=== PATIENT | female | born 1985 | race Caucasian/White ===

== ENCOUNTER 2016-05-10 10:32 | Emergency (ER) | payer BC ==
--- NOTE | 2016-05-10 11:33 | ER Document Report ---
ED Medical Screen (RME) - General Stated Complaint: ANXIETY Mode of Arrival: Ambulatory Information source: Patient Notes: 30 y/o F with reports hx of anxiety reports recently moved to local area and has not established care yet and needs anti-anxiety medication. Denies SI/HI. I have greeted and performed a rapid initial assessment of this patient. A comprehensive ED assessment and evaluation of the patient, analysis of test results and completion of the medical decision making process will be conducted by additional ED providers. - Related Data Allergies/Adverse Reactions: No Known Allergies Allergy (Unverified 05/10/16 11:30) Physical Exam - Vital signs Vitals: Temp Pulse Resp BP Pulse Ox 98.1 F 89 20 119/95 H 100 05/10/16 11:28 05/10/16 11:28 05/10/16 11:28 05/10/16 11:28 05/10/16 11:28 - General General appearance: Appears well, Alert In distress: None - Respiratory Respiratory status: No respiratory distress - Psychological Associated symptoms: Normal affect, Normal mood Course - Vital Signs Vital signs: Temp Pulse Resp BP Pulse Ox 98.1 F 89 20 119/95 H 100 05/10/16 11:28 05/10/16 11:28 05/10/16 11:28 05/10/16 11:28 05/10/16 11:28
--- NOTE | 2016-05-10 15:33 | ER Document Report ---
HPI - HPI Patient complains to provider of: medication refill Onset: This morning Onset/Duration: Sudden Quality of pain: No pain Severity: None Pain Level: Denies Context: Patient presents to the emergency department with request for medication refill of her Xanax. Patient reports that she ran out of medication this morning. She reports she takes Xanax twice a day. She reports she is knew to the area and doesn't know where to go. She reports she does have [employer] and is waiting for also. She denies other symptoms such as fever nausea vomiting diarrhea Associated Symptoms: None Exacerbated by: Denies Relieved by: Denies Similar symptoms previously: Yes Recently seen / treated by doctor: No - DERM Skin Color: Normal Past Medical History - General Information source: Patient Last Menstrual Period: 05/02/16 - Social History Smoking Status: Never Smoker Chew tobacco use (# tins/day): No Frequency of alcohol use: None Drug Abuse: None Lives with: Family Family History: None Patient has suicidal ideation: No Patient has homicidal ideation: No Renal/ Medical History: Denies: Hx Peritoneal Dialysis Psychiatric Medical History: Reports: Hx Anxiety Surgical Hx: Negative Vertical Provider Document - CONSTITUTIONAL Agree With Documented VS: Yes Exam Limitations: No Limitations General Appearance: WD/WN, No Apparent Distress - INFECTION CONTROL TRAVEL OUTSIDE OF THE [place] IN LAST 30 DAYS: No - HEENT HEENT: Atraumatic, Normocephalic - NECK Neck: Supple - RESPIRATORY Respiratory: Breath Sounds Normal, No Respiratory Distress O2 Sat by Pulse Oximetry: 100 - CARDIOVASCULAR Cardiovascular: Regular Rate - MUSCULOSKELETAL/EXTREMETIES Musculoskeletal/Extremeties: JEROME DUMONT - NEURO Level of Consciousness: Awake, Alert, Appropriate - DERM Integumentary: Warm, Dry Course - Re-evaluation Re-evalutation: 05/10/16 15:34 I contacted Maddie from mental health on information for patient, place for patient to fu quickly with. Patient instructed on mental health resources in the area. She was instructed to follow up with mental health or primary care provider for further refills. - Vital Signs Vital signs: Temp Pulse Resp BP Pulse Ox 98.1 F 89 20 119/95 H 100 05/10/16 11:28 05/10/16 11:28 05/10/16 11:28 05/10/16 11:28 05/10/16 11:28 Discharge - Discharge Clinical Impression: Anxiety, Medication refill Condition: Stable Disposition: HOME, SELF-CARE Instructions: Anxiety ([facility]), Benzodiazepines ([facility]), Family Physicians / Practices Additional Instructions: *You have been treated for a history of anxiety, medication refill *Take medication as prescribed *Follow up with mental health or a primary care provider within one week *Return to ED for concerns, worsening condition, changes, needs Prescriptions: Alprazolam [Xanax 0.5 mg Tablet] 0.5 mg PO BID #14 tab Referrals: [facility] [Provider Group] - Follow up tomorrow (call for appointment)
[2016-05-10 15:47] VITALS: BP 135/90
== END 2016-05-10 16:00 | disposition home or self-care (01) ==
LOC: ER 10:32
DX: Z76.0 Encounter for issue of repeat prescription (principal); F41.9 Anxiety disorder, unspecified
CPT/HCPCS: 99281

== ENCOUNTER 2016-10-13 09:59 | Emergency (ER) | payer BC, MEDICAID, OTHER ==
--- NOTE | 2016-10-13 10:14 | ER Document Report ---
ED Medical Screen (RME) - General Chief Complaint: Headache Stated Complaint: LOWER BACK PAIN/HEADACHE Time Seen by Provider: 10/13/16 10:14 Notes: Patient presents complaining of posterior headache that has been constant for the last 5 days. She also complains of right flank pain that is been present for 4 days. Patient denies any problems with urination. She has had vomiting. She denies any knowledge of being . Patient has had no fevers or rashes. TRAVEL OUTSIDE OF THE [place] IN LAST 30 DAYS: No - Related Data Allergies/Adverse Reactions: No Known Allergies Allergy (Verified 10/13/16 10:05) Past Medical History Renal/ Medical History: Denies: Hx Peritoneal Dialysis Psychiatric Medical History: Reports: Hx Anxiety Physical Exam - Vital signs Vitals: Temp Pulse Resp BP Pulse Ox 98.4 F 88 16 158/106 H 99 10/13/16 10:04 10/13/16 10:04 10/13/16 10:04 10/13/16 10:04 10/13/16 10:04 Course - Vital Signs Vital signs: Temp Pulse Resp BP Pulse Ox 98.4 F 88 16 158/106 H 99 10/13/16 10:04 10/13/16 10:04 10/13/16 10:04 10/13/16 10:04 10/13/16 10:04
[2016-10-13 10:34] LABS: ABSOLUTE BASOPHILS # (AUTO) 0.1 10^3/uL (0.0-0.2); ABSOLUTE EOSINOPHILS # (AUTO) 0.3 10^3/uL (0.0-0.6); ABSOLUTE LYMPHOCYTES (AUTO) 3.9 10^3/uL (0.5-4.7); ABSOLUTE MONOCYTES (AUTO) 1.4 10^3/uL (0.1-1.4); BASOPHILS % (AUTO) 0.9 % (0-2); EOSINOPHILS % (AUTO) 2.5 % (0-6); HEMATOCRIT 41.7 % (36.0-47.0); HEMOGLOBIN 13.8 g/dL (12.0-15.5); HGB HCT DIFFERENCE -0.3; LYMPHOCYTES % (AUTO) 33.6 % (13-45); MEAN CORPUSCULAR HEMOGLOBIN 31.1 pg (27.0-33.4); MEAN CORPUSCULAR HGB CONC 33.1 g/dL (32.0-36.0); MEAN CORPUSCULAR VOLUME 94 fl (80-97); MONOCYTES % (AUTO) 11.7 % (3-13); RED BLOOD COUNT 4.43 10^6/uL (3.72-5.28); RED CELL DISTRIBUTION WIDTH 13.6 % (11.5-14.0); SEGMENTED NEUTROPHILS % (AUTO) 51.3 % (42-78); WHITE BLOOD COUNT 11.6 10^3/uL (4.0-10.5)
[2016-10-13 10:42] LABS: APPEARANCE,URINE CLOUDY; BILIRUBIN,URINE NEGATIVE (NEGATIVE); GLUCOSE, URINE NEGATIVE (NEGATIVE); KETONES,URINE NEGATIVE (NEGATIVE); LEUKOCYTE ESTERASE,URINE LARGE (NEGATIVE); NITRITE,URINE NEGATIVE (NEGATIVE); PROTEIN,URINE NEGATIVE (NEGATIVE); URINE SPECIFIC GRAVITY 1.009; UROBILINOGEN,URINE NEGATIVE mg/dL (<2.0)
[2016-10-13 10:53] LABS: ALANINE AMINOTRANSFERASE 25 U/L (9-52); ALBUMIN 4.4 g/dL (3.5-5.0); ALKALINE PHOSPHATASE 53 U/L (38-126); ANION GAP 11 (5-19); ASPARTATE AMINO TRANSFERASE 18 U/L (14-36); BILIRUBIN,DIRECT 0.2 mg/dL (0.0-0.4); BILIRUBIN,TOTAL 0.4 mg/dL (0.2-1.3); BLOOD UREA NITROGEN 14 mg/dL (7-20); CALCIUM 9.5 mg/dL (8.4-10.2); CARBON DIOXIDE 29 mmol/L (22-30); CHLORIDE 104 mmol/L (98-107); CREATININE RESULT 0.69 mg/dL (0.52-1.25); GLUCOSE 103 mg/dL (75-110); POTASSIUM 4.2 mmol/L (3.6-5.0); SODIUM 144.4 mmol/L (137-145); TOTAL PROTEIN 7.6 g/dL (6.3-8.2)
[2016-10-13] MEDS ORDERED: ONDANSETRON HCL INJ/PF 4 MG/2 ML SDV IV ONE (11:12)
[2016-10-13] MEDS ORDERED: KETOROLAC TROMETHAMINE INJ/PF 30 MG/1 ML SDV IV ONE (11:12)
[2016-10-13] MEDS ORDERED: NORMAL SALINE 1000 ML 1,000 ML IV PRN (11:12)
--- NOTE | 2016-10-13 11:15 | ER Document Report ---
ED General - General Chief Complaint: Headache Stated Complaint: LOWER BACK PAIN/HEADACHE Time Seen by Provider: 10/13/16 10:14 Mode of Arrival: Ambulatory Information source: Patient TRAVEL OUTSIDE OF THE [place] IN LAST 30 DAYS: No - HPI Patient complains to provider of: Headache, nausea and vomiting, syncopal episode, low back pain Onset: Other - 5 days Onset/Duration: Gradual, Waxing and waning Quality of pain: Achy Severity: Moderate Pain Level: 3 Associated symptoms: Body/muscle aches, Headache, Nausea, Vomiting Exacerbated by: Denies Relieved by: Denies Similar symptoms previously: No Recently seen / treated by doctor: No Notes: Patient is a 30-year-old female with a history of my headaches and anxiety, who presents to the emergency room today complaining of right-sided low back pain that started on Tuesday, on Tuesday she developed a headache which is in the posterior part of her head radiating into her neck, on Tuesday she had a syncopal episode, states her son was unable to arouse her and called 911, EMS sprayed something in her nose that woke her up and she has been feeling ill with a headache since, she reports dizziness, with nausea and vomiting since Tuesday, denies any abdominal pain, no fever or chills, no dysuria or urinary frequency, no sick contacts, she has had a history of syncope a few times in the past, she reports daily headaches but the headaches she has had over the past few days is different than usual, states that she only takes ibuprofen at home for the headache, but is also prescribed Xanax twice a day for anxiety - Related Data Allergies/Adverse Reactions: No Known Allergies Allergy (Verified 10/13/16 10:05) Past Medical History - General Information source: Patient - Social History Smoking Status: Never Smoker Family History: None Renal/ Medical History: Denies: Hx Peritoneal Dialysis Psychiatric Medical History: Reports: Hx Anxiety Review of Systems - Review of Systems Constitutional: No symptoms reported EENT: No symptoms reported Cardiovascular: No symptoms reported Respiratory: No symptoms reported Gastrointestinal: See HPI Genitourinary: No symptoms reported Female Genitourinary: No symptoms reported Musculoskeletal: See HPI Skin: No symptoms reported Hematologic/Lymphatic: No symptoms reported Neurological/Psychological: See HPI -: Yes All other systems reviewed and negative Physical Exam - Vital signs Vitals: Temp Pulse Resp BP Pulse Ox 98.4 F 88 16 158/106 H 99 10/13/16 10:04 10/13/16 10:04 10/13/16 10:04 10/13/16 10:04 10/13/16 10:04 Interpretation: Normal - General General appearance: Appears well, Alert - HEENT Head: Normocephalic, Atraumatic Eyes: Normal Pupils: PERRL - Respiratory Respiratory status: No respiratory distress Chest status: Nontender Breath sounds: Normal Chest palpation: Normal - Cardiovascular Rhythm: Regular Heart sounds: Normal auscultation Murmur: No - Abdominal Inspection: Normal Distension: No distension Bowel sounds: Normal Tenderness: Nontender Organomegaly: No organomegaly - Back Back: Normal, Nontender - Extremities General upper extremity: Normal inspection, Nontender, Normal color, Normal ROM , Normal temperature General lower extremity: Normal inspection, Nontender, Normal color, Normal ROM , Normal temperature, Normal weight bearing. No: Dariel's sign - Neurological Neuro grossly intact: Yes Cognition: Normal Orientation: AAOx4 Cantril Coma Scale Eye Opening: Spontaneous Cantril Coma Scale Verbal: Oriented Cantril Coma Scale Motor: Obeys Commands Ai Coma Scale Total: 15 Speech: Normal Motor strength normal: LUE, RUE, LLE, RLE Sensory: Normal - Psychological Associated symptoms: Normal affect, Normal mood - Skin Skin Temperature: Warm Skin Moisture: Dry Skin Color: Normal Course - Re-evaluation Re-evalutation: 10/13/16 12:53 Patient resting comfortably, reports feeling much better after IV fluids and medications, lab and imaging findings were discussed with patient at bedside which are consistent with a UTI, she will be started on antibiotics for this, advised to rest, drink plenty of fluids, follow-up with primary care provider or return if symptoms worsen, patient acknowledges understanding and agreement with this plan - Vital Signs Vital signs: Temp Pulse Resp BP Pulse Ox 98.4 F 88 16 158/106 H 99 10/13/16 10:04 10/13/16 10:04 10/13/16 10:04 10/13/16 10:04 10/13/16 10:04 - Laboratory Result Diagrams: 10/13/16 10:20 10/13/16 10:20 Laboratory results interpreted by me: 10/13/16 10/13/16 10:20 10:20 WBC 11.6 H Plt Count 480 H Urine Blood SMALL H Ur Leukocyte Esterase LARGE H - Diagnostic Test Radiology reviewed: Image reviewed, Reports reviewed - EKG Interpretation by Me EKG shows normal: Sinus rhythm Rate: Normal Rhythm: NSR Discharge - Discharge Clinical Impression: Urinary tract infection Qualifiers: Urinary tract infection type: site unspecified Hematuria presence: without hematuria Qualified Code(s): N39.0 - Urinary tract infection, site not specified Migraine headache Qualifiers: Migraine type: unspecified Status migrainosus presence: without status migrainosus Intractability: not intractable Qualified Code(s): G43.909 - Migraine, unspecified, not intractable, without status migrainosus Condition: Stable Disposition: HOME, SELF-CARE Instructions: Headache ([facility]), Urinary Tract Infection ([facility]), Cephalexin ([facility]) Additional Instructions: Follow up with your primary care provider in one to 2 days. Return to the emergency room immediately if symptoms worsen or any additional concerns. Prescriptions: Cephalexin Monohydrate [Keflex 500 mg Capsule] 500 mg PO BID #20 capsule
--- NOTE | 2016-10-13 11:39 | RADIOLOGY REPORT (SQ) ---
EXAM DESCRIPTION: CT HEAD WITHOUT COMPLETED DATE/TIME: 10/13/2016 11:28 am REASON FOR STUDY: injury COMPARISON: None. TECHNIQUE: Axial images acquired through the brain without intravenous contrast. Images reviewed wi th bone, brain and subdural windows. Images stored on PACS. All CT scanners at this facility use dose modulation, iterative reconstruction, and/or weight based d osing when appropriate to reduce radiation dose to as low as reasonably achievable (ALARA). [facility]: Dose Right [facility]: CareDose [facility]: Dose Right [facility]: Teradose 4D [facility]: [employer] RADIATION DOSE: Up-to-date CT equipment and radiation dose reduction techniques were employed. CTDIv ol: 64.6 mGy. DLP: 1163 mGy-cm. mGy. LIMITATIONS: None. FINDINGS: VENTRICLES: Normal size and contour. CEREBRUM: No masses. No hemorrhage. No midline shift. Normal reid/white matter differentiation. N o evidence for acute infarction. CEREBELLUM: No masses. No hemorrhage. No alteration of density. No evidence for acute infarction. EXTRAAXIAL SPACES: No fluid collections. No masses. ORBITS AND GLOBE: No intra- or extraconal masses. Normal contour of globe without masses. CALVARIUM: No fracture. PARANASAL SINUSES: No fluid or mucosal thickening. SOFT TISSUES: No mass or hematoma. OTHER: No other significant finding. IMPRESSION: NORMAL BRAIN CT WITHOUT CONTRAST. TECHNICAL DOCUMENTATION: JOB ID: [id number] Quality ID # [id number]: Final reports with documentation of one or more dose reduction techniques (e.g., Au tomated exposure control, adjustment of the mA and/or kV according to patient size, use of iterative reconstruction technique) 2010 [employer]- All Rights Reserved
[2016-10-13 12:48] LABS: URINE BARBITURATES SCREEN NEGATIVE; URINE METHADONE SCREEN NEGATIVE; URINE OPIATES LOW NEGATIVE; URINE PHENCYCLIDINE SCREEN NEGATIVE
[2016-10-13 13:22] VITALS: BP 119/87
--- NOTE | 2016-10-13 16:21 | EKG REPORT ---
SEVERITY:- NORMAL ECG - SINUS RHYTHM : Confirmed by: Peggy Helm MD 13-Oct-2016 16:20:54
== END 2016-10-13 13:23 | disposition home or self-care (01) ==
LOC: ER 09:59
DX: N39.0 Urinary tract infection, site not specified (principal); G43.909 Migraine, unspecified, not intractable, without status migrainosus; R11.2 Nausea with vomiting, unspecified; M54.5 Low back pain; R42 Dizziness and giddiness; F41.9 Anxiety disorder, unspecified; Z79.899 Other long term (current) drug therapy
CPT/HCPCS: 93005; 99284; 96361; 96374; 96375; 36415; 85025; 81025; 80053; 81001; 80307; 70450; 93010; J1885; J2405; J7030

== ENCOUNTER 2016-12-02 12:15 | Emergency (ER) | payer SELFPAY ==
[2016-12-02] MEDS ORDERED: ASPIRIN 325 MG TABLET PO ONE (12:47)
--- NOTE | 2016-12-02 12:57 | ER Document Report ---
ED Medical Screen (RME) - General Chief Complaint: Chest Pain Stated Complaint: CHEST AND FACE PAIN Time Seen by Provider: 12/02/16 12:46 Mode of Arrival: Ambulatory Information source: Patient TRAVEL OUTSIDE OF THE [place] IN LAST 30 DAYS: No - HPI Patient complains to provider of: CP Onset: This morning - pt with onset of SSCP earlier today along with right sided facial pain. - Related Data Allergies/Adverse Reactions: No Known Allergies Allergy (Verified 12/02/16 12:29) Home Medications: Current Home Medications No Home Medications 12/02/16 [History] Past Medical History - Social History Chew tobacco use (# tins/day): No Frequency of alcohol use: None Drug Abuse: None Renal/ Medical History: Denies: Hx Peritoneal Dialysis Psychiatric Medical History: Reports: Hx Anxiety Past Surgical History: Reports: Hx Abdominal Surgery - spleenectomy, Hx Section - x3, Hx Pancreatic Surgery - part of pancreas removed - Immunizations Hx Diphtheria, Pertussis, Tetanus Vaccination: No Physical Exam - Vital signs Vitals: Temp Pulse Resp BP Pulse Ox 98.4 F 98 12 130/86 H 99 12/02/16 12:23 12/02/16 12:23 12/02/16 12:23 12/02/16 12:23 12/02/16 12:23 Course - Vital Signs Vital signs: Temp Pulse Resp BP Pulse Ox 98.4 F 98 12 130/86 H 99 12/02/16 12:23 12/02/16 12:23 12/02/16 12:23 12/02/16 12:23 12/02/16 12:23
[2016-12-02 13:11] LABS: ABSOLUTE BASOPHILS # (AUTO) 0.1 10^3/uL (0.0-0.2); ABSOLUTE EOSINOPHILS # (AUTO) 0.2 10^3/uL (0.0-0.6); ABSOLUTE LYMPHOCYTES (AUTO) 4.6 10^3/uL (0.5-4.7); ABSOLUTE MONOCYTES (AUTO) 1.6 10^3/uL (0.1-1.4); ABSOLUTE NEUT (AUTO) 7.7 10^3/uL (1.7-8.2); EOSINOPHILS % (AUTO) 1.7 % (0-6); HEMATOCRIT 43.1 % (36.0-47.0); HEMOGLOBIN 14.6 g/dL (12.0-15.5); HGB HCT DIFFERENCE 0.7; LYMPHOCYTES % (AUTO) 32.4 % (13-45); MEAN CORPUSCULAR HEMOGLOBIN 30.9 pg (27.0-33.4); MEAN CORPUSCULAR HGB CONC 33.9 g/dL (32.0-36.0); MEAN CORPUSCULAR VOLUME 91 fl (80-97); MONOCYTES % (AUTO) 11.3 % (3-13); RED BLOOD COUNT 4.74 10^6/uL (3.72-5.28); RED CELL DISTRIBUTION WIDTH 13.5 % (11.5-14.0); SEGMENTED NEUTROPHILS % (AUTO) 53.6 % (42-78); WHITE BLOOD COUNT 14.3 10^3/uL (4.0-10.5)
[2016-12-02 13:30] LABS: ALANINE AMINOTRANSFERASE 37 U/L (9-52); ALBUMIN 4.8 g/dL (3.5-5.0); ALKALINE PHOSPHATASE 56 U/L (38-126); ANION GAP 17 (5-19); ASPARTATE AMINO TRANSFERASE 21 U/L (14-36); BILIRUBIN,DIRECT 0.3 mg/dL (0.0-0.4); BILIRUBIN,TOTAL 0.4 mg/dL (0.2-1.3); BLOOD UREA NITROGEN 10 mg/dL (7-20); CARBON DIOXIDE 22 mmol/L (22-30); CHLORIDE 103 mmol/L (98-107); CREATINE KINASE 59 U/L (30-135); CREATININE RESULT 0.63 mg/dL (0.52-1.25); GLUCOSE 94 mg/dL (75-110); POTASSIUM 4.2 mmol/L (3.6-5.0); SODIUM 142.1 mmol/L (137-145); TOTAL PROTEIN 8.2 g/dL (6.3-8.2)
[2016-12-02 13:42] LABS: CREATINE KINASE MB < 0.22 ng/mL (<4.55); TROPONIN I < 0.012 ng/mL
--- NOTE | 2016-12-02 14:01 | RADIOLOGY REPORT (SQ) ---
EXAM DESCRIPTION: CHEST PA/LAT COMPLETED DATE/TIME: 12/02/2016 1:22 pm REASON FOR STUDY: CP COMPARISON: None. EXAM PARAMETERS: NUMBER OF VIEWS: two views TECHNIQUE: Digital Frontal and Lateral radiographic views of the chest acquired. RADIATION DOSE: NA LIMITATIONS: none FINDINGS: LUNGS AND PLEURA: No opacities, masses or pneumothorax. No pleural effusion. MEDIASTINUM AND HILAR STRUCTURES: No masses or contour abnormalities. HEART AND VASCULAR STRUCTURES: Heart normal size. No evidence for failure. BONES: No acute findings. HARDWARE: None in the chest. OTHER: No other significant finding. IMPRESSION: NO SIGNIFICANT RADIOGRAPHIC FINDING IN THE CHEST. TECHNICAL DOCUMENTATION: JOB ID: [id number] [employer]- All Rights Reserved
--- NOTE | 2016-12-02 14:26 | ER Document Report ---
ED General - General Chief Complaint: Chest Pain Stated Complaint: CHEST AND FACE PAIN Time Seen by Provider: 12/02/16 12:46 Mode of Arrival: Ambulatory Notes: Patient is a 31 female presents emergency department complaining of multiple symptoms. Her primary complaint at this time is headache with facial numbness. She states that she woke up with this headache in the right side of her face feeling numb. She states that it hurts along the back side of her head and exacerbated with movment mildly. She states she has a history of migraines but that this is different with the associated numbness of her face. She has no facial paralysis. She is able to move her eyes and blink her eyes without any difficulties. No visual changes. Otherwise denies any weakness, numbness in her extremities. She does admit to mild chest pain as she was sitting watching TV, no associated shortness of breath, dyspnea, pleurisy, cough, nausea, vomiting. She states it is reproducible to touch of her sternum. TRAVEL OUTSIDE OF THE [place] IN LAST 30 DAYS: No - Related Data Allergies/Adverse Reactions: No Known Allergies Allergy (Verified 12/02/16 12:29) Home Medications: Current Home Medications No Home Medications 12/02/16 [History] Past Medical History - General Information source: Patient - Social History Smoking Status: Never Smoker Chew tobacco use (# tins/day): No Frequency of alcohol use: None Drug Abuse: None Family History: None Renal/ Medical History: Denies: Hx Peritoneal Dialysis Psychiatric Medical History: Reports: Hx Anxiety Past Surgical History: Reports: Hx Abdominal Surgery - spleenectomy, Hx Section - x3, Hx Pancreatic Surgery - part of pancreas removed - Immunizations Hx Diphtheria, Pertussis, Tetanus Vaccination: No Review of Systems - Review of Systems Constitutional: No symptoms reported Cardiovascular: See HPI Respiratory: See HPI Gastrointestinal: See HPI Musculoskeletal: See HPI Neurological/Psychological: See HPI -: Yes All other systems reviewed and negative Physical Exam - Vital signs Vitals: Temp Pulse Resp BP Pulse Ox 98.4 F 98 12 130/86 H 99 12/02/16 12:23 12/02/16 12:23 12/02/16 12:23 12/02/16 12:23 12/02/16 12:23 - General General appearance: Appears well, Alert In distress: None - HEENT Head: Normocephalic, Atraumatic. No: Abrasions, Justin's sign, Ecchymosis, Open wounds, Racoon's eyes, Tenderness, Other Eyes: Normal. No: Pale conjunctiva, Periorbital ecchymosis, Periorbital edema, Scleral icterus, Tears, Other Conjunctiva: Normal. No: Icteric, Injected, Purulent discharge, Other Cornea: Normal. No: Corneal abrasion, Corneal ulcer, Dendrite, Embedded foreign body, Flourescein stain uptake, Opacified, Superficial foreign body, Other Extraocular movements intact: Yes Eyelashes: Normal Pupils: PERRL Lids everted for exam: bilateral: Normal Fundascopic: Normal Nerve palsy: No Visual peguero normal: Yes Ears: Normal, Other - No evidence of vesicularLesions Tympanic membrane: Normal Sinus: Normal Nasal: Normal Mouth/Lips: Normal Mucous membranes: Normal Pharynx: Normal Neck: Normal - Respiratory Respiratory status: No respiratory distress Chest status: Nontender Breath sounds: Normal Chest palpation: Normal - Cardiovascular Rhythm: Regular Heart sounds: Normal auscultation, S1 appreciated, S2 appreciated Murmur: No Gallop: None auscultated Pulses: Normal: Radial, Dorsalis pedis Normal capillary refill: Yes - Abdominal Inspection: Normal Distension: No distension Bowel sounds: Normal Tenderness: Nontender Organomegaly: No organomegaly - Extremities General upper extremity: Normal inspection, Nontender, Normal color, Normal ROM , Normal strength, Normal temperature General lower extremity: Normal inspection, Nontender, Normal color, Normal ROM , Normal strength, Normal temperature, Normal weight bearing - Neurological Neuro grossly intact: Yes Cognition: Normal Orientation: AAOx4 [place] Coma Scale Eye Opening: Spontaneous [place] Coma Scale Verbal: Oriented Ai Coma Scale Motor: Obeys Commands Manderson Coma Scale Total: 15 Speech: Normal Cranial nerves: Normal. No: Facial palsy, Forehead sparing, Gaze palsy, Sensory deficit, Tongue deviation, Other Cerebellar coordination: Normal. No: Gait ataxia, Heel-crane, Finger-nose rhombey, Rapid alt. movements, Truncal ataxia, Other Motor strength normal: LUE, RUE, LLE, RLE Additional motor exam normals: Equal organ teacher. No: Weakness Sensory: Altered light touch - To her face. - Skin Skin Temperature: Warm Skin Moisture: Dry Skin Color: Normal Skin Turgor: Elastic Course - Re-evaluation Re-evalutation: 12/02/16 13:00 Patient is a 31-year-old female who is hemodynamically stable, no acute distress afebrile. No evidence of CT patient does not have any focal neurologic deficits, nuchal rigidity, vital signs are within normal limits no papilledema. Patient is otherwise no acute distress and hemodynamically stable. Low index for suspicion of acute subarachnoid hemorrhage, meningitis or mass. Findings significant for hemorrhage, ischemia. Low suspicion for acute life-threatening etiology with intact neuro exam therefore no additional imaging or laboratory testing is indicated. Patient has improved after medication. States her chest pain has resolved mildly tender to deep palpation. States that her head mildly hurts at the back of her neck that is tender to touch but otherwise states that her generalized headache is resolved. Will discharge patient home with strict follow-up with PCP within the next week. - Vital Signs Vital signs: Temp Pulse Resp BP Pulse Ox 98.4 F 93 20 116/88 H 98 12/02/16 12:23 12/02/16 17:06 12/02/16 17:06 12/02/16 17:06 12/02/16 17:06 - Laboratory Result Diagrams: 12/02/16 13:00 12/02/16 13:00 Laboratory results interpreted by me: 12/02/16 12/02/16 13:00 14:43 WBC 14.3 H Plt Count 478 H Absolute Monocytes 1.6 H Urine Ketones TRACE H Urine Blood SMALL H Urine Nitrite POSITIVE H Ur Leukocyte Esterase TRACE H - Diagnostic Test Radiology reviewed: Image reviewed, Reports reviewed - EKG Interpretation by Ut EKG shows normal: Sinus rhythm Rate: Normal Rhythm: NSR When compared to previous EKG there are: Previous EKG unavailable Discharge - Discharge Clinical Impression: Headache Qualifiers: Headache type: tension-type Headache chronicity pattern: acute headache Intractability: not intractable Qualified Code(s): G44.209 - Tension-type headache, unspecified, not intractable Condition: Good Disposition: HOME, SELF-CARE Additional Instructions: HEADACHE: The physician does not feel that the headache you are experiencing has a serious underlying cause. Most headaches are due to emotional stress, with resultant muscle tension (tension headache). Occasionally, headaches are secondary to changes in the blood vessels of the scalp (vascular headache and migraine headache). Sometimes, a headache is the first symptom of another developing illness, such as a viral infection. You have no evidence of stroke, bleeding, meningitis, or other serious cause of your headache. The treatment of headaches varies with the severity and cause of the pain. Not all headaches need pain shots. In fact, there is evidence that using narcotics for headaches may make them worse in the long run. The physician will determine the therapy that's in your best interest. If you develop a fever, if the headache is different from any you've previously experienced, or if the headache progressively worsens, then call your physician at once or go to the emergency room. REGLAN (METOCLOPRAMIDE): Reglan has been prescribed. This medicine affects the stomach and intestines. It can be used to treat nausea and vomiting, to prevent reflux of stomach acid up into the esophagus, or to increase the contractions of the stomach and intestines. It is often prescribed for esophagitis, and for paralysis of the stomach in diabetics. Reglan can cause either mild restlessness or drowsiness. You should contact the doctor at once if you become extremely restless, anxious, or cannot sleep, or if you develop uncontrollable motions of the lips, tongue, or jaw. Do not take alcohol with this medicine. Do not drive or operate machinery until you have been taking this medicine long enough to know how it affects you. Call the doctor if you develop abdominal pains, lightheadedness, black stool, or blood in the stool or vomitus. USE OF DIPHENHYDRAMINE: Diphenhydramine (Benadryl) is an antihistamine and has been recommended to help treat your headache and to prevent side effects of other medications used to treat headaches. The medication can be repeated four times daily. Age Elixir (12.5 mg/tsp) 25 mg pill adult 1-2 tabs Antihistamines may cause drowsiness, especially with the first dose. Do not operate machinery or drive while under the effects of the medication. Do not combine the medication with alcohol, or with any other medication without talking to your doctor. ANTINAUSEA MEDICATION: You have been given a medication to suppress nausea and vomiting. This type of medication can be given as a shot, pill, or suppository. It will usually last for many hours. Pills and shots usually last six to eight hours, suppositories last about 12 hours. For the typical illness, only one or two doses of the medication may be necessary. Mild lightheadedness may occur. This type of medicine can cause drowsiness. Do not drive or operate dangerous machinery while under its influence. Do not mix with alcohol. See your doctor at once if you have muscle spasms or tightness, or uncontrollable motions (particularly of the neck, mouth, or jaw). Persistent vomiting or severe lightheadedness should also be evaluated by the physician. PAIN MEDICATION INJECTION: You have received an injection of a pain medication. You should experience significant pain relief within 45 minutes. This drug is a narcotic - - it will impair your judgement, slow your reaction time and make you sleepy ( as well as relieve your pain). Narcotics also can cause nausea. You should not drive, work with machinery, or perform any task requiring mental alertness until all effects of the medication are gone -- six to eight hours. Do not take any alcohol, or sedatives, and do not take any other medication without checking with your physician. FOLLOW-UP CARE: If you have been referred to a physician for follow-up care, call the physician s office for an appointment as you were instructed or within the next two days. If you experience worsening or a significant change in your symptoms, notify the physician immediately or return to the Emergency Department at any time for re-evaluation. Referrals: [facility] [NO LOCAL MD] - Follow up as needed
--- NOTE | 2016-12-02 14:50 | RADIOLOGY REPORT (SQ) ---
EXAM DESCRIPTION: CT HEAD WITHOUT COMPLETED DATE/TIME: 12/02/2016 2:36 pm REASON FOR STUDY: right occipital headache with facial numbness COMPARISON: None. TECHNIQUE: Axial images acquired through the brain without intravenous contrast. Images reviewed wi th bone, brain and subdural windows. Images stored on PACS. All CT scanners at this facility use dose modulation, iterative reconstruction, and/or weight based d osing when appropriate to reduce radiation dose to as low as reasonably achievable (ALARA). [facility]: Dose Right [facility]: CareDose [facility]: Dose Right [facility]: Teradose 4D [facility]: Smart Mindshapes RADIATION DOSE: Up-to-date CT equipment and radiation dose reduction techniques were employed. CTDIv ol: 64.6 mGy. DLP: 1163 mGy-cm. mGy. LIMITATIONS: None. FINDINGS: VENTRICLES: Normal size and contour. CEREBRUM: No masses. No hemorrhage. No midline shift. No evidence for acute infarction. Normal gra y/white matter differentiation. No areas of low density in the white matter. CEREBELLUM: No masses. No hemorrhage. No alteration of density. No evidence for acute infarction. EXTRAAXIAL SPACES: No fluid collections. No masses. ORBITS AND GLOBE: No intra- or extraconal masses. Normal contour of globe without masses. CALVARIUM: No fracture. PARANASAL SINUSES: No fluid or mucosal thickening. SOFT TISSUES: No mass or hematoma. OTHER: No other significant finding. IMPRESSION: NORMAL BRAIN CT WITHOUT CONTRAST. COMMENT: Quality ID # [id number]: Final reports with documentation of one or more dose reduction techniques (e.g., Automated exposure control, adjustment of the mA and/or kV according to patient size, use of iterative reconstruction technique) TECHNICAL DOCUMENTATION: JOB ID: [id number]- All Rights Reserved
[2016-12-02 14:57] LABS: AMORPHOUS SEDIMENT,URINE TRACE /HPF; APPEARANCE,URINE SLIGHTLY-CLOUDY; BILIRUBIN,URINE NEGATIVE (NEGATIVE); GLUCOSE, URINE NEGATIVE (NEGATIVE); KETONES,URINE TRACE mg/dL (NEGATIVE); LEUKOCYTE ESTERASE,URINE TRACE (NEGATIVE); NITRITE,URINE POSITIVE (NEGATIVE); PROTEIN,URINE NEGATIVE (NEGATIVE); URINE SPECIFIC GRAVITY 1.012; UROBILINOGEN,URINE NEGATIVE mg/dL (<2.0)
[2016-12-02] MEDS ORDERED: DIPHENHYDRAMINE HCL 50 MG/ML VIAL IV ONE (15:16)
[2016-12-02] MEDS ORDERED: METOCLOPRAMIDE HCL INJ/PF 10 MG/2 ML SDV IV ONE (15:16)
[2016-12-02] MEDS ORDERED: MORPHINE SULFATE 10 MG/ML INJ IV ONE (15:16)
[2016-12-02 17:07] VITALS: BP 116/88
--- NOTE | 2016-12-02 20:14 | EKG REPORT ---
SEVERITY:- NORMAL ECG - SINUS RHYTHM : Confirmed by: Flory Dewey 02-Dec-2016 20:13:48
== END 2016-12-02 17:07 | disposition home or self-care (01) ==
LOC: ER 12:15
DX: G44.209 Tension-type headache, unspecified, not intractable (principal); R20.0 Anesthesia of skin; R07.9 Chest pain, unspecified
CPT/HCPCS: 93005; 99285; 96374; 96375; 36415; 82553; 82550; 84703; 85025; 80053; 81001; 84484; 71020; 70450; 93010; J1200; J2765; J2270

== ENCOUNTER 2018-12-03 12:11 | Emergency (ER) | payer SELFPAY ==
[2018-12-03] MEDS ORDERED: KETOROLAC TROMETHAMINE INJ/PF 30 MG/1 ML SDV IV ONE (12:35)
[2018-12-03] MEDS ORDERED: NORMAL SALINE 1000 ML 1,000 ML IV ONE (12:35)
[2018-12-03] MEDS ORDERED: DEXAMETHASONE SOD PHOS INJ 10 MG/1 ML VIAL IV ONE (12:38)
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
[2018-12-03 13:26] LABS: APPEARANCE,URINE HAZY; BILIRUBIN,URINE NEGATIVE (NEGATIVE); COLOR,URINE YELLOW; GLUCOSE, URINE NEGATIVE (NEGATIVE); KETONES,URINE NEGATIVE (NEGATIVE); LEUKOCYTE ESTERASE,URINE LARGE (NEGATIVE); NITRITE,URINE NEGATIVE (NEGATIVE); PROTEIN,URINE 100 mg/dL (NEGATIVE); UROBILINOGEN,URINE NEGATIVE mg/dL (<2.0)
[2018-12-03 13:28] LABS: ABSOLUTE BASOPHILS # (AUTO) 0.2 10^3/uL (0.0-0.2); ABSOLUTE EOSINOPHILS # (AUTO) 0.3 10^3/uL (0.0-0.6); ABSOLUTE LYMPHOCYTES (AUTO) 3.8 10^3/uL (0.5-4.7); ABSOLUTE NEUT (AUTO) 6.1 10^3/uL (1.7-8.2); BASOPHILS % (AUTO) 1.3 % (0-2); HEMATOCRIT 39.8 % (36.0-47.0); HEMOGLOBIN 13.3 g/dL (12.0-15.5); LYMPHOCYTES % (AUTO) 33.3 % (13-45); MEAN CORPUSCULAR HEMOGLOBIN 30.4 pg (27.0-33.4); MEAN CORPUSCULAR HGB CONC 33.3 g/dL (32.0-36.0); MEAN CORPUSCULAR VOLUME 91 fl (80-97); MONOCYTES % (AUTO) 8.8 % (3-13); PLATELET COUNT 558 10^3/uL (150-450); RED BLOOD COUNT 4.36 10^6/uL (3.72-5.28); RED CELL DISTRIBUTION WIDTH 13.8 % (11.5-14.0); SEGMENTED NEUTROPHILS % (AUTO) 53.6 % (42-78); TOTAL CELLS COUNTED % (AUTO) 100 %; WHITE BLOOD COUNT 11.4 10^3/uL (4.0-10.5)
[2018-12-03 13:31] LABS: URINE SPECIFIC GRAVITY 1.014
[2018-12-03 13:36] LABS: ALBUMIN 4.4 g/dL (3.5-5.0); ALKALINE PHOSPHATASE 60 U/L (38-126); ANION GAP 11 (5-19); ASPARTATE AMINO TRANSFERASE 34 U/L (14-36); BILIRUBIN,DIRECT 0.1 mg/dL (0.0-0.4); BILIRUBIN,TOTAL 0.3 mg/dL (0.2-1.3); BLOOD UREA NITROGEN 11 mg/dL (7-20); CALCIUM 9.6 mg/dL (8.4-10.2); CARBON DIOXIDE 29 mmol/L (22-30); CHLORIDE 100 mmol/L (98-107); GLUCOSE 116 mg/dL (75-110); POTASSIUM 4.5 mmol/L (3.6-5.0); TOTAL PROTEIN 7.6 g/dL (6.3-8.2)
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
--- NOTE | 2018-12-03 14:07 | RADIOLOGY REPORT (SQ) ---
EXAM DESCRIPTION: CT ABD/PELVIS NO ORAL OR IV COMPLETED DATE/TIME: 12/03/2018 1:53 pm REASON FOR STUDY: Rt flank pain, hematuria COMPARISON: None. TECHNIQUE: CT scan of the abdomen and pelvis performed without intravenous or oral contrast. Images reviewed with lung, soft tissue, and bone windows. Reconstructed coronal and sagittal MPR images revi ewed. All images stored on PACS. All CT scanners at this facility use dose modulation, iterative reconstruction, and/or weight based d osing when appropriate to reduce radiation dose to as low as reasonably achievable (ALARA). [facility]: Dose Right [facility]: CareDose [facility]: Dose Right [facility]: Teradose 4D [facility]: Smart [employer] RADIATION DOSE: CT Rad equipment meets quality standard of care and radiation dose reduction techniq ues were employed. CTDIvol: 12.6 mGy. DLP: 644 mGy-cm.mGy. LIMITATIONS: None. FINDINGS: LOWER CHEST: No significant findings. No nodules or infiltrates. NON-CONTRASTED LIVER, SPLEEN, ADRENALS: Liver unremarkable. Status post splenectomy. No adrenal mas s. PANCREAS: No masses. No peripancreatic inflammatory changes. GALLBLADDER: No identified stones by CT criteria. No inflammatory changes to suggest cholecystitis. RIGHT KIDNEY AND URETER: Medullary calcinosis. No evidence of hydronephrosis or ureteral stones. LEFT KIDNEY AND URETER: Similar findings to the right kidney. AORTA AND RETROPERITONEUM: No aneurysm. No retroperitoneal masses or adenopathy. BOWEL AND PERITONEAL CAVITY: No obvious masses or inflammatory changes. No free fluid. APPENDIX: Normal. PELVIS, BLADDER, AND ABDOMINAL WALL:No abnormal masses. No free fluid. Bladder normal. BONES: No significant findings. OTHER: No other significant finding. IMPRESSION: 1. No evidence of urinary obstruction. No acute or suspicious abdominopelvic abnormality. 2. Bilateral medullary nephrocalcinosis. TECHNICAL DOCUMENTATION: JOB ID: [id number] Quality ID # [id number]: Final reports with documentation of one or more dose reduction techniques (e.g., Au tomated exposure control, adjustment of the mA and/or kV according to patient size, use of iterative reconstruction technique) 2010 [employer]- All Rights Reserved Reading location - IP/workstation name: [email or web address]
[2018-12-03 14:40] VITALS: BP 119/84
== END 2018-12-03 14:42 | disposition home or self-care (01) ==
LOC: ER 12:11
DX: E83.59 Other disorders of calcium metabolism (principal); N29 Other disorders of kidney and ureter in diseases classified elsewhere; N39.0 Urinary tract infection, site not specified; M54.5 Low back pain; R10.31 Right lower quadrant pain; J02.9 Acute pharyngitis, unspecified
CPT/HCPCS: 36415; 87070; 87086; 87880; 85025; 81025; 87088; 80053; 81001; 74176; J1885; J7030; J1100; 87186; 96361; 96374; 96375; 99284

== ENCOUNTER 2019-01-18 00:21 | Emergency (ER) | payer OTHER ==
[2019-01-18 01:18] LABS: APPEARANCE,URINE SLIGHTLY-CLOUDY; BILIRUBIN,URINE NEGATIVE (NEGATIVE); COLOR,URINE YELLOW; GLUCOSE, URINE NEGATIVE (NEGATIVE); KETONES,URINE 80 mg/dL (NEGATIVE); LEUKOCYTE ESTERASE,URINE SMALL (NEGATIVE); NITRITE,URINE NEGATIVE (NEGATIVE); PROTEIN,URINE 100 mg/dL (NEGATIVE); URINE SPECIFIC GRAVITY 1.029; UROBILINOGEN,URINE NEGATIVE mg/dL (<2.0)
[2019-01-18 01:19] LABS: HEMATOCRIT 43.5 % (36.0-47.0); HEMOGLOBIN 14.4 g/dL (12.0-15.5); MEAN CORPUSCULAR HEMOGLOBIN 29.7 pg (27.0-33.4); MEAN CORPUSCULAR VOLUME 90 fl (80-97); PLATELET COUNT 485 10^3/uL (150-450); RED BLOOD COUNT 4.84 10^6/uL (3.72-5.28); RED CELL DISTRIBUTION WIDTH 13.6 % (11.5-14.0); WHITE BLOOD COUNT 29.6 10^3/uL (4.0-10.5)
[2019-01-18 01:27] LABS: ALBUMIN 4.7 g/dL (3.5-5.0); ALKALINE PHOSPHATASE 117 U/L (38-126); ANION GAP 15 (5-19); ASPARTATE AMINO TRANSFERASE 95 U/L (14-36); BILIRUBIN,DIRECT 0.2 mg/dL (0.0-0.4); BILIRUBIN,TOTAL 0.4 mg/dL (0.2-1.3); BLOOD UREA NITROGEN 17 mg/dL (7-20); CALCIUM 10.3 mg/dL (8.4-10.2); CARBON DIOXIDE 23 mmol/L (22-30); CHLORIDE 104 mmol/L (98-107); GLUCOSE 152 mg/dL (75-110); POTASSIUM 4.3 mmol/L (3.6-5.0); TOTAL PROTEIN 8.5 g/dL (6.3-8.2)
[2019-01-18 01:34] LABS: ABSOLUTE LYMPHOCYTES# (MANUAL) 5.6 10^3/uL (0.5-4.7); ABSOLUTE MONOCYTES # (MANUAL) 1.8 10^3/uL (0.1-1.4); BAND NEUTROPHILS % (MANUAL) 1 % (3-5); BASOPHILS % (MANUAL) 0 % (0-2); EOSINOPHILS % (MANUAL) 0 % (0-6); LYMPHOCYTES % (MANUAL) 19 % (13-45); MONOCYTES % (MANUAL) 6 % (3-13); PLATELET COMMENT INCREASED; RBC MORPHOLOGY COMMENT NORMO-CYTIC/CHROMIC; SEGMENTED NEUTROPHILS % (MAN) 74 % (42-78); TOTAL CELLS COUNTED 100
--- NOTE | 2019-01-18 02:54 | RADIOLOGY REPORT (SQ) ---
EXAM DESCRIPTION: CT ABDOMEN PELVIS WITHOUT IV CONTRAST COMPLETED DATE/TME: 01/18/2019 00:00 CLINICAL HISTORY: 33 years, Female, left flank pain, blood in urine. HCG NEG. COMPARISON: 12/03/2018 CT TECHNIQUE: 370 Images stored on PACS. All CT scanners at this facility use dose modulation, iterative reconstruction, and/or weight based dosing when appropriate to reduce radiation dose to as low as reasonably achievable (ALARA). [facility]: Dose Right [facility]: CareDose [facility]: Dose Right [facility]: Teradose 4D [facility]: Smart [employer] LIMITATIONS: None. FINDINGS: Limited evaluation of the lung bases is unremarkable. Osseous structures are grossly intact. Fatty infiltrative change to the liver. Post surgical changes in the left upper quadrant. Spleen is surgically absent. The gallbladder is present. Hyperdense appearance to the renal remains could reflect medullary nephrocalcinosis. Moderate left hydroureteronephrosis with minor adjacent inflammatory change secondary to an approximately 4 to 5 mm left UVJ calculus. No gross evidence for bowel obstruction. Trace of free fluid in the pelvis which may be physiologic. Normal appendix. No free air. IMPRESSION: Moderate left hydroureteronephrosis secondary to a 4 to 5 mm left UVJ calculus. Findings suggestive of medullary nephrocalcinosis. TECHNICAL DOCUMENTATION: Quality ID # 436: Final reports with documentation of one or more dose reduction techniques (e.g., Automated exposure control, adjustment of the mA and/or kV according to patient size, use of iterative reconstruction technique) copyright 2011 [employer]- All Rights Reserved
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
[2019-01-18] MEDS ORDERED: CEFTRIAXONE 1 GM/D5W RTU 1 GM/50 ML RTUPB IV ONE (03:42)
[2019-01-18] MEDS ORDERED: ONDANSETRON HCL INJ/PF 4 MG/2 ML SDV IV ONE (03:42)
[2019-01-18] MEDS ORDERED: KETOROLAC TROMETHAMINE INJ/PF 30 MG/1 ML SDV IV ONE (03:42)
[2019-01-18] MEDS ORDERED: NORMAL SALINE 1000 ML 1,000 ML IV ONE (03:42)
[2019-01-18 06:57] VITALS: BP 130/85
== END 2019-01-18 06:58 | disposition home or self-care (01) ==
LOC: ER 00:21
DX: N20.1 Calculus of ureter (principal); R10.32 Left lower quadrant pain; M54.6 Pain in thoracic spine; R11.0 Nausea; F17.200 Nicotine dependence, unspecified, uncomplicated
CPT/HCPCS: 99284; 96375; 96365; 36415; 83690; 85025; 81025; 80053; 81001; 74176; J1885; J2405; J7030; J0696

== ENCOUNTER 2019-02-04 10:11 | Emergency (ER) | payer OTHER ==
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
[2019-02-04 10:47] LABS: AMORPHOUS SEDIMENT,URINE TRACE /HPF; APPEARANCE,URINE CLOUDY; BILIRUBIN,URINE NEGATIVE (NEGATIVE); COLOR,URINE YELLOW; GLUCOSE, URINE NEGATIVE (NEGATIVE); KETONES,URINE NEGATIVE (NEGATIVE); LEUKOCYTE ESTERASE,URINE NEGATIVE (NEGATIVE); NITRITE,URINE NEGATIVE (NEGATIVE); PROTEIN,URINE 30 mg/dL (NEGATIVE); URINE SPECIFIC GRAVITY 1.021; UROBILINOGEN,URINE NEGATIVE mg/dL (<2.0)
--- NOTE | 2019-02-04 11:31 | RADIOLOGY REPORT (SQ) ---
EXAM DESCRIPTION: CT SOFT TISSUE NECK WITH COMPLETED DATE/TIME: 02/04/2019 10:57 am REASON FOR STUDY: diff swallowing COMPARISON: None. TECHNIQUE: Post IV contrasted scanning from skull base through lung apices with review of bone, soft tissue and lung windows. Reconstructed coronal and sagittal MPR images reviewed. All images stored on PACS. All CT scanners at this facility use dose modulation, iterative reconstruction, and/or weight based d osing when appropriate to reduce radiation dose to as low as reasonably achievable (ALARA). [facility]: Dose Right [facility]: CareDose [facility]: Dose Right [facility]: Teradose 4D [facility]: [employer] CONTRAST TYPE AND DOSE: contrast/concentration: Isovue 350.00 mg/ml; Total Contrast Delivered: 75.0 ml; Total Saline Delivered: 55.0 ml RENAL FUNCTION: None required. The patient is less than 50 years old. RADIATION DOSE: CT Rad equipment meets quality standard of care and radiation dose reduction techniq ues were employed. CTDIvol: 14.4 mGy. DLP: 438 mGy-cm. . LIMITATIONS: None. FINDINGS: SKULL BASE: Inferior brain parenchyma normal MAJOR SALIVARY GLANDS: No solid or cystic masses. No inflammatory changes. LYMPHADENOPATHY: Mild diffuse cervical adenopathy. Right jugulodigastric lymph node 2.5 by 1.5 cm. Left jugulodigastric lymph node 2.5 x 2 cm in size. Smaller lymph nodes are seen along the right and left carotid spaces. MUCOSAL MASSES OR ASYMMETRY: Diffusely enlarged bilateral pharyngeal tonsils without intra tonsillar or peritonsillar abscess. These cause moderate narrowing of the cisco pharyngeal airway. Both tonsils measure about 3 x 2 x 4 cm in size. There is also hypertrophy of the lymphoid tissue at the tongue base protruding into the vallecula, be st shown on sagittal reconstruction images 33-39. LARYNX/CORDS: No abnormal findings. VASCULAR STRUCTURES: The major vessels are patent. LUNG APICES: Patchy airspace disease is seen at the superior segment right lower lobe and right lung apex. Concurrent pneumonia may be present. Two-view chest recommended for follow-up. BONES: Intact. THYROID: Normal size. No masses. PARANASAL SINUSES: Clear. OTHER: No other significant finding. IMPRESSION: Diffuse enlargement of the pharyngeal tonsils and lingual lymphoid tissue worrisome for infection/ inflammation. Enlarged cervical lymph nodes are present, likely reactive. Correlate clin ically to exclude lymphoproliferative process Patchy airspace disease in the right upper lobe/superior segment right lower lobe. Two-view chest x- ray recommended for follow-up. TECHNICAL DOCUMENTATION: JOB ID: [id number] Quality ID # [id number]: Final reports with documentation of one or more dose reduction techniques (e.g., Au tomated exposure control, adjustment of the mA and/or kV according to patient size, use of iterative reconstruction technique) 2010 [employer]- All Rights Reserved Reading location - IP/workstation name: [email or web address]
[2019-02-04] MEDS ORDERED: DEXAMETHASONE SOD PHOS INJ 10 MG/1 ML VIAL IV ONE (11:34)
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
--- NOTE | 2019-02-04 12:10 | RADIOLOGY REPORT (SQ) ---
EXAM DESCRIPTION: CHEST 2 VIEWS COMPLETED DATE/TIME: 02/04/2019 11:53 am REASON FOR STUDY: difficulty swallowing COMPARISON: 02/04/2019 CT soft tissue neck EXAM PARAMETERS: NUMBER OF VIEWS: two views TECHNIQUE: Digital Frontal and Lateral radiographic views of the chest acquired. RADIATION DOSE: NA LIMITATIONS: none FINDINGS: LUNGS AND PLEURA: Question early or developing right upper lobe infiltrate. Airspace dise ase was seen in the right lung apex on the CT soft tissue neck earlier today. No dense consolidation worrisome for lobar pneumonia. No pleural effusion or pneumothorax. MEDIASTINUM AND HILAR STRUCTURES: No masses or contour abnormalities. HEART AND VASCULAR STRUCTURES: Heart normal size. No evidence for failure. BONES: No acute findings. HARDWARE: Surgical clips in the GE junction. OTHER: No other significant finding. IMPRESSION: Early or developing right upper lobe infiltrate TECHNICAL DOCUMENTATION: JOB ID: [id number] [employer]- All Rights Reserved Reading location - IP/workstation name: [email or web address]
[2019-02-04 12:22] LABS: ABSOLUTE BASOPHILS # (AUTO) 0.1 10^3/uL (0.0-0.2); ABSOLUTE EOSINOPHILS # (AUTO) 0.4 10^3/uL (0.0-0.6); ABSOLUTE LYMPHOCYTES (AUTO) 9.6 10^3/uL (0.5-4.7); ABSOLUTE MONOCYTES (AUTO) 1.7 10^3/uL (0.1-1.4); ABSOLUTE NEUT (AUTO) 6.4 10^3/uL (1.7-8.2); BASOPHILS % (AUTO) 0.5 % (0-2); EOSINOPHILS % (AUTO) 2.4 % (0-6); HEMATOCRIT 41.1 % (36.0-47.0); HEMOGLOBIN 13.4 g/dL (12.0-15.5); LYMPHOCYTES % (AUTO) 52.6 % (13-45); MEAN CORPUSCULAR HEMOGLOBIN 29.6 pg (27.0-33.4); MEAN CORPUSCULAR HGB CONC 32.5 g/dL (32.0-36.0); MEAN CORPUSCULAR VOLUME 91 fl (80-97); MONOCYTES % (AUTO) 9.2 % (3-13); PLATELET COUNT 607 10^3/uL (150-450); RED BLOOD COUNT 4.51 10^6/uL (3.72-5.28); RED CELL DISTRIBUTION WIDTH 13.5 % (11.5-14.0); SEGMENTED NEUTROPHILS % (AUTO) 35.3 % (42-78); TOTAL CELLS COUNTED % (AUTO) 100 %; WHITE BLOOD COUNT 18.3 10^3/uL (4.0-10.5)
[2019-02-04 12:27] LABS: ALBUMIN 4.1 g/dL (3.5-5.0); ALKALINE PHOSPHATASE 100 U/L (38-126); ANION GAP 10 (5-19); ASPARTATE AMINO TRANSFERASE 27 U/L (14-36); BILIRUBIN,DIRECT 0.2 mg/dL (0.0-0.4); BILIRUBIN,TOTAL 0.4 mg/dL (0.2-1.3); BLOOD UREA NITROGEN 15 mg/dL (7-20); CALCIUM 9.5 mg/dL (8.4-10.2); CARBON DIOXIDE 30 mmol/L (22-30); CHLORIDE 102 mmol/L (98-107); GLUCOSE 116 mg/dL (75-110); POTASSIUM 4.7 mmol/L (3.6-5.0); TOTAL PROTEIN 7.9 g/dL (6.3-8.2)
[2019-02-04] MEDS ORDERED: NORMAL SALINE 1000 ML 1,000 ML IV ONE (12:42)
[2019-02-04] MEDS ORDERED: KETOROLAC TROMETHAMINE INJ/PF 30 MG/1 ML SDV IV ONE (12:48)
[2019-02-04] MEDS ORDERED: AZITHROMYCIN INJ 500 MG VIAL IV ONE (14:19)
[2019-02-04] MEDS ORDERED: METHYLPREDNISOLONE INJ 125 MG/2 ML SDV IV ONE (14:20)
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
[2019-02-04] MEDS ORDERED: ONDANSETRON HCL INJ/PF 4 MG/2 ML SDV IV ONE (15:18)
[2019-02-04] MEDS ORDERED: LORAZEPAM INJ 2 MG/1 ML VIAL IV ONE (15:19)
[2019-02-04] MEDS: NORMAL SALINE 1000 ML 1,000 ML IV PRN ×2 (15:29→16:27)
[2019-02-04 18:18] VITALS: BP 120/93
== END 2019-02-04 18:21 | disposition home or self-care (01) ==
LOC: ER 10:11
DX: J18.8 Other pneumonia, unspecified organism (principal); J02.9 Acute pharyngitis, unspecified; R06.02 Shortness of breath
CPT/HCPCS: 99284; 96361; 96375; 96365; 96366; 36415; 87040; 87070; 87880; 85025; 81025; 87077; 86308; 80053; 81001; 83605; 71046; 70491; J2930; J1885; J2060; J2405; J7030; J0456; J1100

== ENCOUNTER → 2019-03-23 | Outpatient (CLI) | payer OTHER ==
[2019-03-23 08:47] LABS: ABSOLUTE BASOPHILS # (AUTO) 0.1 10^3/uL (0.0-0.2); ABSOLUTE EOSINOPHILS # (AUTO) 0.5 10^3/uL (0.0-0.6); ABSOLUTE LYMPHOCYTES (AUTO) 6.1 10^3/uL (0.5-4.7); ABSOLUTE NEUT (AUTO) 3.7 10^3/uL (1.7-8.2); BASOPHILS % (AUTO) 1.2 % (0-2); HEMOGLOBIN 13.4 g/dL (12.0-15.5); LYMPHOCYTES % (AUTO) 53.6 % (13-45); MEAN CORPUSCULAR HEMOGLOBIN 29.4 pg (27.0-33.4); MEAN CORPUSCULAR HGB CONC 33.6 g/dL (32.0-36.0); MEAN CORPUSCULAR VOLUME 88 fl (80-97); MONOCYTES % (AUTO) 9.1 % (3-13); PLATELET COUNT 483 10^3/uL (150-450); RED BLOOD COUNT 4.55 10^6/uL (3.72-5.28); RED CELL DISTRIBUTION WIDTH 14.3 % (11.5-14.0); SEGMENTED NEUTROPHILS % (AUTO) 32.1 % (42-78); TOTAL CELLS COUNTED % (AUTO) 100 %; WHITE BLOOD COUNT 11.4 10^3/uL (4.0-10.5)
[2019-03-23 08:50] LABS: APPEARANCE,URINE CLOUDY; BILIRUBIN,URINE NEGATIVE (NEGATIVE); COLOR,URINE YELLOW; GLUCOSE, URINE NEGATIVE (NEGATIVE); KETONES,URINE NEGATIVE (NEGATIVE); LEUKOCYTE ESTERASE,URINE NEGATIVE (NEGATIVE); NITRITE,URINE NEGATIVE (NEGATIVE); PROTEIN,URINE NEGATIVE (NEGATIVE); UROBILINOGEN,URINE NEGATIVE mg/dL (<2.0)
[2019-03-23 09:02] LABS: ALBUMIN 4.4 g/dL (3.5-5.0); ALKALINE PHOSPHATASE 51 U/L (38-126); ANION GAP 11 (5-19); ASPARTATE AMINO TRANSFERASE 22 U/L (14-36); BILIRUBIN,DIRECT 0.2 mg/dL (0.0-0.4); BILIRUBIN,TOTAL 0.4 mg/dL (0.2-1.3); BLOOD UREA NITROGEN 13 mg/dL (7-20); CALCIUM 9.7 mg/dL (8.4-10.2); CARBON DIOXIDE 26 mmol/L (22-30); CHLORIDE 104 mmol/L (98-107); CHOLESTEROL 217.01 mg/dL (0-200); GLUCOSE 104 mg/dL (75-110); POTASSIUM 4.6 mmol/L (3.6-5.0); TOTAL PROTEIN 7.9 g/dL (6.3-8.2); TRIGLYCERIDES 304 mg/dL (<150)
[2019-03-23 09:13] LABS: DIRECT LDL 131 mg/dL (<100)
[2019-03-23 09:18] LABS: VLDL CHOLESTEROL 60.8 mg/dL (10-31)
--- NOTE | 2019-03-23 09:23 | RADIOLOGY REPORT (SQ) ---
EXAM DESCRIPTION: CHEST PA/LATERAL COMPLETED DATE/TIME: 03/23/2019 8:43 am REASON FOR STUDY: LOBAR PNEUMONIA, UNSPECIFIED ORGANISM COMPARISON: 02/04/2019 EXAM PARAMETERS: NUMBER OF VIEWS: two views TECHNIQUE: Digital Frontal and Lateral radiographic views of the chest acquired. RADIATION DOSE: NA LIMITATIONS: none FINDINGS: LUNGS AND PLEURA: Resolution of previously seen right upper lobe ill-defined opacities. N o new consolidation. No pleural effusion pneumothorax pre MEDIASTINUM AND HILAR STRUCTURES: No masses or contour abnormalities. HEART AND VASCULAR STRUCTURES: Heart normal size. No evidence for failure. BONES: Surgical clips overlie left upper quadrant. HARDWARE: None in the chest. OTHER: No other significant finding. IMPRESSION: Resolution of previously seen right upper lobe opacities. No evidence of new cardiopulm onary process. TECHNICAL DOCUMENTATION: JOB ID: [id number] [employer]- All Rights Reserved Reading location - IP/workstation name: [email or web address]
== END ==
LOC: CCC 08:10
DX: R06.02 Shortness of breath (principal); Z09 Encounter for follow-up examination after completed treatment for conditions other than malignant neoplasm; Z87.01 Personal history of pneumonia (recurrent); R73.09 Other abnormal glucose; Z87.442 Personal history of urinary calculi
CPT/HCPCS: 36415; 71046; 80053; 80061; 81001; 83036; 84443; 85025

== ENCOUNTER → 2019-07-06 | Outpatient (CLI) | payer OTHER ==
--- NOTE | 2019-07-06 10:28 | RADIOLOGY REPORT (SQ) ---
EXAM DESCRIPTION: U/S RETROPERITON (RENAL/AORTA) IMAGES COMPLETED DATE/TIME: 07/06/2019 10:14 am REASON FOR STUDY: N20.0 CALCULUS OF KIDNEY, N20.1 CALCULUS OF URETER N20.0 CALCULUS OF KIDNEY N20.1 CALCULUS OF URETER COMPARISON: None. TECHNIQUE: Dynamic and static grayscale images acquired of the kidneys and bladder and recorded on P ACS. Additional selected color Doppler and spectral images recorded. LIMITATIONS: None. FINDINGS: RIGHT KIDNEY: The right kidney measures 9.8 cm in length. The corticomedullary differenti ation is preserved, however the cortex appears thinned and echogenicity of the medulla is increased. There is no hydronephrosis or mass. LEFT KIDNEY: The left kidney mid measures 10.4 cm in length. The corticomedullary differentiation is preserved, however the cortex appears thinned and echogenicity of the medulla is increased. There is no hydronephrosis or mass. BLADDER: The urinary bladder is nondistended. OTHER FINDINGS: No other finding. IMPRESSION: 1. As stated above, the corticomedullary differentiation of the kidneys is preserved how ever the cortices appear thinned and the echogenicity of the maxilla is increased. 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 There is no hydronephrosis or mass. 2. Limited evaluation of the nondistended urinary bladder. TECHNICAL DOCUMENTATION: JOB ID: [id number] 2010 [employer]- All Rights Reserved Reading location - IP/workstation name: [email or web address]
== END ==
LOC: RAD 09:00
PROVIDERS: ATTEND Urology
DX: N20.0 Calculus of kidney (principal); N20.1 Calculus of ureter
CPT/HCPCS: 76770

== ENCOUNTER 2019-09-23 09:10 | Emergency (ER) | payer OTHER ==
--- NOTE | 2019-09-23 10:47 | RADIOLOGY REPORT (SQ) ---
EXAM DESCRIPTION: CHEST SINGLE VIEW IMAGES COMPLETED DATE/TIME: 09/23/2019 10:23 am REASON FOR STUDY: cough COMPARISON: Chest films 03/23/2019, 02/04/2019, 12/02/2016 EXAM PARAMETERS: NUMBER OF VIEWS: One view. TECHNIQUE: Single frontal radiographic view of the chest acquired. RADIATION DOSE: NA LIMITATIONS: None. FINDINGS: LUNGS AND PLEURA: No opacities, masses or pneumothorax. No pleural effusion. MEDIASTINUM AND HILAR STRUCTURES: No masses. Contour normal. HEART AND VASCULAR STRUCTURES: Heart normal in size. Normal vasculature. BONES: No acute findings. HARDWARE: None in the chest. OTHER: No other significant finding. IMPRESSION: NO ACUTE RADIOGRAPHIC FINDING IN THE CHEST. TECHNICAL DOCUMENTATION: JOB ID: [id number] 2010 [employer]- All Rights Reserved Reading location - IP/workstation name: [email or web address]
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
[2019-09-23 11:46] VITALS: BP 139/86
== END 2019-09-23 11:47 | disposition home or self-care (01) ==
LOC: ER 09:10
DX: R05 Cough (principal); J02.9 Acute pharyngitis, unspecified; J35.1 Hypertrophy of tonsils; R59.0 Localized enlarged lymph nodes; R09.89 Other specified symptoms and signs involving the circulatory and respiratory systems; Z90.81 Acquired absence of spleen; Z20.828 Contact with and (suspected) exposure to other viral communicable diseases
CPT/HCPCS: 99283; 87070; 87880; 87635; 71045; C9803

== ENCOUNTER 2019-12-30 12:15 | Emergency (ER) | payer OTHER, SELFPAY ==
[2019-12-30 12:56] LABS: APPEARANCE,URINE CLOUDY; BILIRUBIN,URINE NEGATIVE (NEGATIVE); COLOR,URINE YELLOW; GLUCOSE, URINE NEGATIVE (NEGATIVE); KETONES,URINE NEGATIVE (NEGATIVE); LEUKOCYTE ESTERASE,URINE NEGATIVE (NEGATIVE); NITRITE,URINE NEGATIVE (NEGATIVE); PROTEIN,URINE 30 mg/dL (NEGATIVE); UROBILINOGEN,URINE NEGATIVE mg/dL (<2.0)
[2019-12-30] MEDS ORDERED: METOCLOPRAMIDE HCL INJ/PF 10 MG/2 ML SDV IV ONE (13:05)
[2019-12-30] MEDS ORDERED: DIPHENHYDRAMINE HCL 50 MG/ML VIAL IV ONE (13:05)
[2019-12-30] MEDS ORDERED: NORMAL SALINE 1000 ML 1,000 ML IV ONE (13:05)
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
[2019-12-30 13:11] LABS: ABSOLUTE BASOPHILS # (AUTO) 0.1 10^3/uL (0.0-0.2); ABSOLUTE EOSINOPHILS # (AUTO) 0.4 10^3/uL (0.0-0.6); ABSOLUTE LYMPHOCYTES (AUTO) 5.9 10^3/uL (0.5-4.7); ABSOLUTE MONOCYTES (AUTO) 1.9 10^3/uL (0.1-1.4); BASOPHILS % (AUTO) 0.5 % (0-2); EOSINOPHILS % (AUTO) 2.1 % (0-6); HEMATOCRIT 39.4 % (36.0-47.0); HEMOGLOBIN 13.4 g/dL (12.0-15.5); LYMPHOCYTES % (AUTO) 34.4 % (13-45); MEAN CORPUSCULAR HEMOGLOBIN 30.3 pg (27.0-33.4); MEAN CORPUSCULAR HGB CONC 33.9 g/dL (32.0-36.0); MEAN CORPUSCULAR VOLUME 89 fl (80-97); MONOCYTES % (AUTO) 10.9 % (3-13); PLATELET COUNT 541 10^3/uL (150-450); RED BLOOD COUNT 4.41 10^6/uL (3.72-5.28); RED CELL DISTRIBUTION WIDTH 13.7 % (11.5-14.0); SEGMENTED NEUTROPHILS % (AUTO) 52.1 % (42-78); TOTAL CELLS COUNTED % (AUTO) 100 %; WHITE BLOOD COUNT 17.2 10^3/uL (4.0-10.5)
[2019-12-30 13:28] LABS: ALBUMIN 4.5 g/dL (3.5-5.0); ALKALINE PHOSPHATASE 53 U/L (38-126); ANION GAP 12 (5-19); ASPARTATE AMINO TRANSFERASE 20 U/L (14-36); BILIRUBIN,DIRECT 0.3 mg/dL (0.0-0.4); BILIRUBIN,TOTAL 0.4 mg/dL (0.2-1.3); BLOOD UREA NITROGEN 8 mg/dL (7-20); CALCIUM 9.8 mg/dL (8.4-10.2); CARBON DIOXIDE 23 mmol/L (22-30); CHLORIDE 103 mmol/L (98-107); GLUCOSE 104 mg/dL (75-110); TOTAL PROTEIN 7.8 g/dL (6.3-8.2)
--- NOTE | 2019-12-30 15:42 | RADIOLOGY REPORT (SQ) ---
EXAM DESCRIPTION: U/S 1TRIMESTER/1GEST W/DOPPLER IMAGES COMPLETED DATE/TIME: 12/30/2019 3:18 pm REASON FOR STUDY: pelvic pain, incidental , eval ectopic COMPARISON: None. TECHNIQUE: Transabdominal static and realtime grayscale images acquired of the pelvis. Additional se lected spectral and color Doppler images recorded. All images stored on PACs. C,900 CLINICAL DATES: 9 Weeks 3 days LIMITATIONS: None. FINDINGS: FETUS: Single Living intrauterine . ULTRASOUND EGA: 9 weeks 1 day ULTRASOUND NICOLE: 08/02/2020 EFW: Not applicable less than 20 weeks. CRL: 2.5 cm FHR: 169 beats per minute. SURVEY: No visualized anomalies. AMNIOTIC FLUID: Adequate amount. PLACENTA: Not yet developed due to early gestation. SUBCHORIONIC BLEED: No. SIZE OF BLEED: Not applicable. UTERUS: No masses. No anomalies. CERVICAL LENGTH: 4 cm Closed. RIGHT ADNEXA: Ovary not identified due to poor acoustical window. No adnexal free fluid. No adnexal masses. LEFT ADNEXA: Ovary not identified due to poor acoustical window. No adnexal free fluid. No adnexal masses. FREE FLUID: None. OTHER: No other significant finding. IMPRESSION: LIVING INTRAUTERINE . EGA 9 weeks 1 day Trimester of : First trimester - 0 to 13 weeks. TECHNICAL DOCUMENTATION: JOB ID: [id number] 2010 [employer]- All Rights Reserved Reading location - IP/workstation name: [email or web address]
[2019-12-30 15:59] VITALS: BP 122/78
== END 2019-12-30 16:10 | disposition home or self-care (01) ==
LOC: ER 12:15
DX: O21.0 Mild hyperemesis gravidarum (principal); O26.891 Other specified pregnancy related conditions, first trimester; R10.2 Pelvic and perineal pain; Z3A.09 9 weeks gestation of pregnancy
CPT/HCPCS: 99285; 96361; 96374; 96375; 36415; 84702; 83690; 85025; 81025; 80053; 81001; 76801; 93976; J1200; J2765; J7030

== ENCOUNTER → 2020-01-07 | Outpatient (CLI) | payer MEDICAID ==
--- NOTE | 2020-01-07 19:11 | RADIOLOGY REPORT (SQ) ---
EXAM DESCRIPTION: U/S OB 14+ TRNABD 1GES W/O DOP IMAGES COMPLETED DATE/TIME: 01/07/2020 2:52 pm REASON FOR STUDY: Z34.81 ENCOUNTER FOR SUPRVSN OF NORMAL , FIRST TRIMESTER Z34.81 ENCOUNTE R FOR SUPRVSN OF NORMAL , FIRST TRIM COMPARISON: None. TECHNIQUE: Transabdominal static and realtime grayscale images acquired of the pelvis. Additional se lected spectral and color Doppler images recorded. All images stored on PACs. bHCG: Not applicable. CLINICAL DATES: LMP 10/25/2019. 10 weeks 4 days. LIMITATIONS: None. FINDINGS: FETUS: Single Living intrauterine . ULTRASOUND EGA: 9 weeks 4 days. ULTRASOUND NICOLE: 08/07/2020 EFW: Not applicable less than 20 weeks. CRL: 2.75 cm. FHR: 178 beats per minute. SURVEY: Too early to assess. AMNIOTIC FLUID: Adequate amount. PLACENTA: Not yet developed due to early gestation. SUBCHORIONIC BLEED: No SIZE OF BLEED: Not applicable. UTERUS: No masses. No anomalies. CERVICAL LENGTH: 2 cm. Closed. RIGHT ADNEXA: Ovary not seen. No adnexal free fluid. No adnexal masses. LEFT ADNEXA: Ovary not seen. No adnexal free fluid. No adnexal masses. FREE FLUID: None. OTHER: No other significant finding. IMPRESSION: LIVING INTRAUTERINE . EGA 9 weeks 4 days. Trimester of : First trimester - 0 to 13 weeks. TECHNICAL DOCUMENTATION: JOB ID: [id number] 2010 [employer]- All Rights Reserved rev-08/05 Reading location - IP/workstation name: [email or web address]
== END ==
LOC: RAD 14:27
PROVIDERS: ATTEND Midwife
DX: Z34.81 Encounter for supervision of other normal pregnancy, first trimester (principal); Z3A.09 9 weeks gestation of pregnancy
CPT/HCPCS: 76801; 76805

== ENCOUNTER 2020-02-02 10:12 | Observation (INO) | payer MEDICAID ==
[2020-02-02] MEDS ORDERED: NORMAL SALINE 1000 ML 1,000 ML IV ONE (10:30)
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
[2020-02-02 11:38] LABS: ABSOLUTE BASOPHILS # (AUTO) 0.1 10^3/uL (0.0-0.2); ABSOLUTE EOSINOPHILS # (AUTO) 0.5 10^3/uL (0.0-0.6); ABSOLUTE LYMPHOCYTES (AUTO) 5.8 10^3/uL (0.5-4.7); ABSOLUTE MONOCYTES (AUTO) 1.2 10^3/uL (0.1-1.4); ABSOLUTE NEUT (AUTO) 11.7 10^3/uL (1.7-8.2); BASOPHILS % (AUTO) 0.3 % (0-2); EOSINOPHILS % (AUTO) 2.8 % (0-6); HEMATOCRIT 37.3 % (36.0-47.0); HEMOGLOBIN 12.6 g/dL (12.0-15.5); LYMPHOCYTES % (AUTO) 30.2 % (13-45); MEAN CORPUSCULAR HEMOGLOBIN 29.6 pg (27.0-33.4); MEAN CORPUSCULAR HGB CONC 33.8 g/dL (32.0-36.0); MEAN CORPUSCULAR VOLUME 87 fl (80-97); MONOCYTES % (AUTO) 6.1 % (3-13); PLATELET COUNT 505 10^3/uL (150-450); RED BLOOD COUNT 4.26 10^6/uL (3.72-5.28); RED CELL DISTRIBUTION WIDTH 13.6 % (11.5-14.0); SEGMENTED NEUTROPHILS % (AUTO) 60.6 % (42-78); TOTAL CELLS COUNTED % (AUTO) 100 %; WHITE BLOOD COUNT 19.3 10^3/uL (4.0-10.5)
--- NOTE | 2020-02-02 12:00 | RADIOLOGY REPORT (SQ) ---
EXAM DESCRIPTION: CHEST 2 VIEWS IMAGES COMPLETED DATE/TIME: 02/02/2020 11:15 am REASON FOR STUDY: chest pain COMPARISON: 09/23/2019, 03/23/2019 EXAM PARAMETERS: NUMBER OF VIEWS: two views TECHNIQUE: Digital Frontal and Lateral radiographic views of the chest acquired. RADIATION DOSE: NA LIMITATIONS: none FINDINGS: LUNGS AND PLEURA: No opacities, masses or pneumothorax. No pleural effusion. MEDIASTINUM AND HILAR STRUCTURES: No masses or contour abnormalities. HEART AND VASCULAR STRUCTURES: Heart normal size. No evidence for failure. BONES: No acute findings. HARDWARE: Surgical clips left upper quadrant OTHER: No other significant finding. IMPRESSION: NO ACUTE RADIOGRAPHIC FINDING IN THE CHEST. TECHNICAL DOCUMENTATION: JOB ID: [id number] 2010 [employer]- All Rights Reserved Reading location - IP/workstation name: [id number]
[2020-02-02 12:01] LABS: ALBUMIN 3.9 g/dL (3.5-5.0); ALKALINE PHOSPHATASE 55 U/L (38-126); ANION GAP 12 (5-19); ASPARTATE AMINO TRANSFERASE 18 U/L (14-36); BILIRUBIN,TOTAL 0.2 mg/dL (0.2-1.3); BLOOD UREA NITROGEN 6 mg/dL (7-20); CALCIUM 9.6 mg/dL (8.4-10.2); CARBON DIOXIDE 21 mmol/L (22-30); CHLORIDE 105 mmol/L (98-107); CREATINE KINASE 27 U/L (30-135); GLUCOSE 99 mg/dL (75-110); POTASSIUM 4.1 mmol/L (3.6-5.0); TOTAL PROTEIN 6.9 g/dL (6.3-8.2)
[2020-02-02] MEDS ORDERED: DEXTROSE 5%-LACTATED RINGERS 1,000 ML IV ONE (13:13)
[2020-02-02 13:16] LABS: APPEARANCE,URINE SLIGHTLY-CLOUDY; BILIRUBIN,URINE NEGATIVE (NEGATIVE); COLOR,URINE YELLOW; GLUCOSE, URINE NEGATIVE (NEGATIVE); KETONES,URINE 20 mg/dL (NEGATIVE); LEUKOCYTE ESTERASE,URINE NEGATIVE (NEGATIVE); NITRITE,URINE NEGATIVE (NEGATIVE); PROTEIN,URINE NEGATIVE (NEGATIVE); URINE SPECIFIC GRAVITY 1.012; UROBILINOGEN,URINE NEGATIVE mg/dL (<2.0)
[2020-02-02] MEDS ORDERED: ONDANSETRON HCL INJ/PF 4 MG/2 ML SDV IV ONE ×2 (14:26→15:02)
[2020-02-02] MEDS ORDERED: PROMETHAZINE HCL INJ 25 MG/1 ML VIAL IM ONE (16:23)
[2020-02-02] MEDS ORDERED: RINGERS SOLUTION,LACTATED 1,000 ML IV ONE (16:24)
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
[2020-02-02] MEDS ORDERED: ONDANSETRON HCL INJ/PF 4 MG/2 ML SDV IV PRN (17:01)
[2020-02-02 17:35] LABS: URINE AMPHETAMINES SCREEN NEGATIVE; URINE BARBITURATES SCREEN NEGATIVE; URINE COCAINE SCREEN NEGATIVE; URINE MARIJUANA (THC) SCREEN NEGATIVE; URINE METHADONE SCREEN NEGATIVE; URINE PHENCYCLIDINE SCREEN NEGATIVE
[2020-02-02 17:38] LABS: URINE BENZODIAZEPINES SCREEN UNCONFIRMED POSITIVE
[2020-02-02] MEDS ORDERED: METOCLOPRAMIDE HCL INJ/PF 10 MG/2 ML SDV IV SCH (18:00)
[2020-02-02] MEDS ORDERED: NORMAL SALINE 1000 ML 1,000 ML with POTASSIUM CHLORIDE 20 MEQ, MAGNESIUM SULFATE 8 MEQ,... IV SCH ×10 (18:00→22:00)
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
[2020-02-02] MEDS: FAMOTIDINE INJ/PF 20 MG/2 ML SDV IV SCH (22:40)
[2020-02-02] MEDS: METOCLOPRAMIDE HCL INJ/PF 10 MG/2 ML SDV IV SCH (23:55)
[2020-02-03 05:37] LABS: ABSOLUTE BASOPHILS # (AUTO) 0.1 10^3/uL (0.0-0.2); ABSOLUTE EOSINOPHILS # (AUTO) 0.8 10^3/uL (0.0-0.6); ABSOLUTE LYMPHOCYTES (AUTO) 7.5 10^3/uL (0.5-4.7); ABSOLUTE MONOCYTES (AUTO) 1.7 10^3/uL (0.1-1.4); ABSOLUTE NEUT (AUTO) 7.6 10^3/uL (1.7-8.2); BASOPHILS % (AUTO) 0.8 % (0-2); EOSINOPHILS % (AUTO) 4.7 % (0-6); HEMATOCRIT 31.8 % (36.0-47.0); HEMOGLOBIN 10.7 g/dL (12.0-15.5); LYMPHOCYTES % (AUTO) 42.2 % (13-45); MEAN CORPUSCULAR HEMOGLOBIN 29.7 pg (27.0-33.4); MEAN CORPUSCULAR HGB CONC 33.7 g/dL (32.0-36.0); MEAN CORPUSCULAR VOLUME 88 fl (80-97); MONOCYTES % (AUTO) 9.4 % (3-13); PLATELET COUNT 406 10^3/uL (150-450); RED BLOOD COUNT 3.62 10^6/uL (3.72-5.28); RED CELL DISTRIBUTION WIDTH 13.5 % (11.5-14.0); SEGMENTED NEUTROPHILS % (AUTO) 42.9 % (42-78); TOTAL CELLS COUNTED % (AUTO) 100 %; WHITE BLOOD COUNT 17.8 10^3/uL (4.0-10.5)
[2020-02-03] MEDS: METOCLOPRAMIDE HCL INJ/PF 10 MG/2 ML SDV IV SCH ×2 (05:41→14:08)
[2020-02-03 06:06] LABS: ALBUMIN 2.9 g/dL (3.5-5.0); ALKALINE PHOSPHATASE 38 U/L (38-126); ANION GAP 9 (5-19); ASPARTATE AMINO TRANSFERASE 16 U/L (14-36); BILIRUBIN,DIRECT 0.1 mg/dL (0.0-0.4); BILIRUBIN,TOTAL 0.3 mg/dL (0.2-1.3); BLOOD UREA NITROGEN 4 mg/dL (7-20); CALCIUM 8.8 mg/dL (8.4-10.2); CARBON DIOXIDE 22 mmol/L (22-30); CHLORIDE 106 mmol/L (98-107); GLUCOSE 90 mg/dL (75-110); POTASSIUM 3.9 mmol/L (3.6-5.0); TOTAL PROTEIN 5.4 g/dL (6.3-8.2)
[2020-02-03] MEDS ORDERED: ACETAMINOPHEN 325 MG TABLET PO PRN (07:49)
--- NOTE | 2020-02-03 09:05 | EKG REPORT ---
SEVERITY:- OTHERWISE NORMAL ECG - SINUS TACHYCARDIA : Confirmed by: Flory Dewey 03-Feb-2020 09:04:24
[2020-02-03] MEDS: FAMOTIDINE INJ/PF 20 MG/2 ML SDV IV SCH (09:15)
--- NOTE | 2020-02-03 09:45 | PDOC DISCHARGE SUMMARY ---
Impression - Admit/DC Date/PCP Admission Date/Primary Care Provider: 02/02/20 17:20 Discharge Date: 02/03/20 - Discharge Diagnosis (1) Intractable nausea and vomiting Is this a current diagnosis for this admission?: Yes (2) Leukocytosis (leucocytosis) Is this a current diagnosis for this admission?: Yes (3) Second trimester Is this a current diagnosis for this admission?: Yes - Additional Information Resuscitation Status: Full Code Discharge Diet: As Tolerated Discharge Activity: Activity As Tolerated, No Lifting Over 10 Pounds, Walk Frequently Prescriptions: Ondansetron [Zofran Odt 4 mg Tablet] 4 mg PO Q4HP PRN #15 tab.rapdis PRN Reason: Unresolved Nausea/Vomiting Home Medications: Ondansetron [Zofran Odt 4 mg Tablet] 4 mg PO Q4HP PRN #15 tab.rapdis 02/03/20 No122/Iron/Folic Acid [ Multi Tablet] 1 tab PO DAILY 02/03/20 Additional Information: Status post IV hydration, vitamin bag and antiemetics. Nausea and vomiting greatly improved. TOlerating PO well. D/c stable condtion. Discussed needs to stop Xanax by tapering off. Vistaril PRN is good for anxiety in . Prozac not ideal in . Zoloft would be better choice. Encouraged bland diet when nausea presenting and hydration. History of Present Illiness History of Present Illness: LUCIAN BELTRAN is a 34 year old female at 14 wks EGA with intractable N/v in . SHe reports 4 lb weight loss this . She has been taking Diclegis over last 2 wks and it had improved but today after breakfast it became very bad. She has not been able to tolerate anything including water since breakfast. She could not keep the diglesis down today. NO Cramping, abdominal pain or vaginal bleeding Physical Exam - Physical Exam Vital Signs: Temp Pulse Resp BP Pulse Ox 97.7 F 97 16 115/71 99 02/03/20 08:22 02/03/20 05:30 02/03/20 05:30 02/03/20 05:30 02/03/20 05:30 Intake & Output 02/02/20 02/03/20 02/04/20 06:59 06:59 06:59 Intake Total 2000 Output Total 450 800 Balance 1550 -800 Weight 83.461 kg Results Laboratory Results: WBC 17.8 10^3/uL (4.0-10.5) H 02/03/20 05:12 RBC 3.62 10^6/uL (3.72-5.28) L 02/03/20 05:12 Hgb 10.7 g/dL (12.0-15.5) L 02/03/20 05:12 Hct 31.8 % (36.0-47.0) L 02/03/20 05:12 MCV 88 fl (80-97) 02/03/20 05:12 MCH 29.7 pg (27.0-33.4) 02/03/20 05:12 MCHC 33.7 g/dL (32.0-36.0) 02/03/20 05:12 RDW 13.5 % (11.5-14.0) 02/03/20 05:12 Plt Count 406 10^3/uL (150-450) 02/03/20 05:12 Lymph % (Auto) 42.2 % (13-45) 02/03/20 05:12 [place] % (Auto) 9.4 % (3-13) 02/03/20 05:12 Eos % (Auto) 4.7 % (0-6) 02/03/20 05:12 Baso % (Auto) 0.8 % (0-2) 02/03/20 05:12 Absolute Neuts (auto) 7.6 10^3/uL (1.7-8.2) 02/03/20 05:12 Absolute Lymphs (auto) 7.5 10^3/uL (0.5-4.7) H 02/03/20 05:12 Absolute Monos (auto) 1.7 10^3/uL (0.1-1.4) H 02/03/20 05:12 Absolute Eos (auto) 0.8 10^3/uL (0.0-0.6) H 02/03/20 05:12 Absolute Basos (auto) 0.1 10^3/uL (0.0-0.2) 02/03/20 05:12 Seg Neutrophils % 42.9 % (42-78) 02/03/20 05:12 Sodium 137.3 mmol/L (137-145) 02/03/20 05:12 Potassium 3.9 mmol/L (3.6-5.0) 02/03/20 05:12 Chloride 106 mmol/L (98-107) 02/03/20 05:12 Carbon Dioxide 22 mmol/L (22-30) 02/03/20 05:12 Anion Gap 9 (5-19) 02/03/20 05:12 BUN 4 mg/dL (7-20) L 02/03/20 05:12 Creatinine 0.43 mg/dL (0.52-1.25) L 02/03/20 05:12 Est GFR ( Amer) > 60 (>60) 02/03/20 05:12 Est GFR (MDRD) Non-Af > 60 (>60) 02/03/20 05:12 Glucose 90 mg/dL (75-110) 02/03/20 05:12 POC Glucose 101 mg/dL (70-110) 02/03/20 05:31 Calcium 8.8 mg/dL (8.4-10.2) 02/03/20 05:12 Magnesium 1.8 mg/dL (1.6-2.3) 02/02/20 11:20 Total Bilirubin 0.3 mg/dL (0.2-1.3) 02/03/20 05:12 Direct Bilirubin 0.1 mg/dL (0.0-0.4) 02/03/20 05:12 Neonat Total Bilirubin Not Reportable 02/03/20 05:12 Neonat Direct Bilirubin Not Reportable 02/03/20 05:12 Neonat Indirect Bili Not Reportable 02/03/20 05:12 AST 16 U/L (14-36) 02/03/20 05:12 ALT 9 U/L (<35) 02/03/20 05:12 Alkaline Phosphatase 38 U/L (38-126) 02/03/20 05:12 Creatine Kinase 27 U/L (30-135) L 02/02/20 11:20 Troponin I < 0.012 ng/mL 02/02/20 11:20 Total Protein 5.4 g/dL (6.3-8.2) L 02/03/20 05:12 Albumin 2.9 g/dL (3.5-5.0) L 02/03/20 05:12 TSH 1.38 uIU/mL (0.47-4.68) 02/03/20 05:12 Urine Color YELLOW 02/02/20 12:45 Urine Appearance SLIGHTLY-CLOUDY 02/02/20 12:45 Urine pH 7.0 (5.0-9.0) 02/02/20 12:45 Ur Specific [place] 1.012 02/02/20 12:45 Urine Protein NEGATIVE mg/dL (NEGATIVE) 02/02/20 12:45 Urine Glucose (UA) NEGATIVE mg/dL (NEGATIVE) 02/02/20 12:45 Urine Ketones 20 mg/dL (NEGATIVE) H 02/02/20 12:45 Urine Blood NEGATIVE (NEGATIVE) 02/02/20 12:45 Urine Nitrite NEGATIVE (NEGATIVE) 02/02/20 12:45 Urine Bilirubin NEGATIVE (NEGATIVE) 02/02/20 12:45 Urine Urobilinogen NEGATIVE mg/dL (<2.0) 02/02/20 12:45 Ur Leukocyte Esterase NEGATIVE (NEGATIVE) 02/02/20 12:45 Urine WBC (Auto) 2 /HPF 02/02/20 12:45 Urine RBC (Auto) 1 /HPF 02/02/20 12:45 Urine Bacteria (Auto) 1+ /HPF 02/02/20 12:45 Squamous Epi Cells Auto 12 /HPF 02/02/20 12:45 Urine Mucus (Auto) RARE /LPF 02/02/20 12:45 Urine Ascorbic Acid NEGATIVE (NEGATIVE) 02/02/20 12:45 Urine Opiates Screen NEGATIVE 02/02/20 12:45 Urine Methadone Screen NEGATIVE 02/02/20 12:45 Ur Barbiturates Screen NEGATIVE 02/02/20 12:45 Ur Phencyclidine Scrn NEGATIVE 02/02/20 12:45 Ur Amphetamines Screen NEGATIVE 02/02/20 12:45 U Benzodiazepines Scrn UNCONFIRMED POSITIVE 02/02/20 12:45 Urine Cocaine Screen NEGATIVE 02/02/20 12:45 U Marijuana (THC) Screen NEGATIVE 02/02/20 12:45 02/02/20 11:20 Troponin I < 0.012 Impressions: Chest X-Ray 02/02/20 10:30 IMPRESSION: NO ACUTE RADIOGRAPHIC FINDING IN THE CHEST. Stroke Is this a Stroke Patient?: No Acute Heart Failure Is this a Heart Failure Patient?: No
[2020-02-03] MEDS ORDERED: NORMAL SALINE 1000 ML 1,000 ML with POTASSIUM CHLORIDE 20 MEQ, MAGNESIUM SULFATE 8 MEQ,... IV SCH ×5 (10:00)
[2020-02-03 11:39] VITALS: BP 118/82
[2020-02-03] MEDS ORDERED: INFLUENZA QUAD (6MOS+) 2020-21 VAC 0.5 ML SYR IM ONE ×2 (16:05→16:15)
[2020-02-04] MEDS ORDERED: INFLUENZA QUAD (6MOS+) 2020-21 VAC 0.5 ML SYR IM ONE (08:00)
== END 2020-02-03 16:22 | disposition home or self-care (01) ==
LOC: ER 10:12 → EH 17:20 → 2S 18:44
PROVIDERS: ADMIT Obstetrics & Gynecology; ATTEND Obstetrics & Gynecology
DX: O26.892 Other specified pregnancy related conditions, second trimester (principal); R11.2 Nausea with vomiting, unspecified; D72.829 Elevated white blood cell count, unspecified; R06.02 Shortness of breath; R51.9 Headache, unspecified; R07.89 Other chest pain; R05 Cough; R00.0 Tachycardia, unspecified; O99.342 Other mental disorders complicating pregnancy, second trimester; F41.9 Anxiety disorder, unspecified; Z3A.14 14 weeks gestation of pregnancy; Z90.81 Acquired absence of spleen; Z90.411 Acquired partial absence of pancreas; Z87.828 Personal history of other (healed) physical injury and trauma; Z23 Encounter for immunization; Z86.32 Personal history of gestational diabetes; Z86.79 Personal history of other diseases of the circulatory system; Z87.442 Personal history of urinary calculi
CPT/HCPCS: 93005; 96376; 99285; 96372; 96361; 96375; 96365; 96366; 36415 ×2; 82962 ×2; 82550; 83735; 84443; 85025 ×2; 80053 ×2; 81001; 84484; 80307; 71046; 90686; 93010; G0378 ×3; G0008; J3490 ×2; J3475; J2765 ×2; J3480; J2550; J3411; J2405; J7121; J7030 ×2; J7120; S0028 ×2; 90471

== ENCOUNTER 2020-02-14 08:15 | Emergency (ER) | payer MEDICAID ==
[2020-02-14] MEDS ORDERED: NORMAL SALINE 1000 ML 1,000 ML IV ONE ×2 (08:38→09:37)
[2020-02-14] MEDS ORDERED: DIPHENHYDRAMINE HCL 50 MG/ML VIAL IV ONE (08:47)
[2020-02-14] MEDS ORDERED: METOCLOPRAMIDE HCL INJ/PF 10 MG/2 ML SDV IV ONE (08:47)
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
[2020-02-14 09:07] LABS: HEMATOCRIT 37.7 % (36.0-47.0); HEMOGLOBIN 12.8 g/dL (12.0-15.5); MEAN CORPUSCULAR HEMOGLOBIN 29.6 pg (27.0-33.4); MEAN CORPUSCULAR HGB CONC 34.1 g/dL (32.0-36.0); MEAN CORPUSCULAR VOLUME 87 fl (80-97); PLATELET COUNT 569 10^3/uL (150-450); RED BLOOD COUNT 4.34 10^6/uL (3.72-5.28); RED CELL DISTRIBUTION WIDTH 13.7 % (11.5-14.0); WHITE BLOOD COUNT 20.9 10^3/uL (4.0-10.5)
[2020-02-14 09:28] LABS: ABSOLUTE LYMPHOCYTES# (MANUAL) 6.5 10^3/uL (0.5-4.7); ABSOLUTE MONOCYTES # (MANUAL) 0.8 10^3/uL (0.1-1.4); BAND NEUTROPHILS % (MANUAL) 1 % (3-5); BASOPHILS % (MANUAL) 0 % (0-2); EOSINOPHILS % (MANUAL) 0 % (0-6); LYMPHOCYTES % (MANUAL) 31 % (13-45); MONOCYTES % (MANUAL) 4 % (3-13); PLATELET CLUMPS PRESENT; PLATELET COMMENT INCREASED; RBC MORPHOLOGY COMMENT NORMO-CYTIC/CHROMIC; SEGMENTED NEUTROPHILS % (MAN) 64 % (42-78); TOTAL CELLS COUNTED 100
[2020-02-14 09:48] LABS: APPEARANCE,URINE TURBID; BILIRUBIN,URINE NEGATIVE (NEGATIVE); CALCIUM OXALATE CRYSTALS,URINE FEW /HPF; COLOR,URINE YELLOW; GLUCOSE, URINE NEGATIVE (NEGATIVE); KETONES,URINE 80 mg/dL (NEGATIVE); LEUKOCYTE ESTERASE,URINE TRACE (NEGATIVE); NITRITE,URINE NEGATIVE (NEGATIVE); PROTEIN,URINE 100 mg/dL (NEGATIVE); URINE SPECIFIC GRAVITY 1.029
[2020-02-14 10:13] LABS: ALBUMIN 3.9 g/dL (3.5-5.0); ALKALINE PHOSPHATASE 64 U/L (38-126); ANION GAP 12 (5-19); ASPARTATE AMINO TRANSFERASE 31 U/L (14-36); BILIRUBIN,DIRECT 0.2 mg/dL (0.0-0.4); BILIRUBIN,TOTAL 0.5 mg/dL (0.2-1.3); BLOOD UREA NITROGEN 12 mg/dL (7-20); CALCIUM 9.1 mg/dL (8.4-10.2); CARBON DIOXIDE 19 mmol/L (22-30); CHLORIDE 108 mmol/L (98-107); GLUCOSE 124 mg/dL (75-110); POTASSIUM 3.8 mmol/L (3.6-5.0)
[2020-02-14] MEDS ORDERED: ONDANSETRON HCL INJ/PF 4 MG/2 ML SDV IV ONE (11:04)
[2020-02-14] MEDS ORDERED: FAMOTIDINE INJ/PF 20 MG/2 ML SDV IV ONE (11:04)
[2020-02-14] MEDS ORDERED: ACETAMINOPHEN 325 MG TABLET PO ONE (11:04)
[2020-02-14] MEDS ORDERED: NORMAL SALINE 500 ML IV ONE (12:58)
[2020-02-14 14:47] VITALS: BP 118/84
== END 2020-02-14 14:47 | disposition home or self-care (01) ==
LOC: ER 08:15
DX: O21.0 Mild hyperemesis gravidarum (principal); D72.829 Elevated white blood cell count, unspecified; Z3A.16 16 weeks gestation of pregnancy
CPT/HCPCS: 99284; 96361; 96374; 96375; 36415; 85025; 80053; 81001; J3490; J1200; J2765; J2405; J7030; J7040; S0028

== ENCOUNTER 2020-04-09 15:47 | Emergency (ER) | payer MEDICAID ==
[2020-04-09] MEDS ORDERED: NORMAL SALINE 1000 ML 2,000 ML IV ONE (16:46)
[2020-04-09] MEDS ORDERED: METOCLOPRAMIDE HCL INJ/PF 10 MG/2 ML SDV IV ONE (16:46)
[2020-04-09] MEDS ORDERED: ONDANSETRON 4 MG TAB.RAPDIS PO ONE (16:46)
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
--- OUTSIDE RECORDS SUMMARY | 2020-04-09 18:00 | XMS REPORT ---
:1985 [facility] [address] [place] [address] Care Team Providers Name Role Phone PCP, INFORMATION UNAVAILABLE Primary Care Physician Unavailrachelle BARRERA Attending Clinician Unavailable AMANDA Attending Clinician Unavailable Virginie LYNCH Attending Clinician Unavailable KEENAN Attending Clinician Unavailable Rachelle HARRISON Attending Clinician Unavailable NEGRA Attending Clinician Unavailable CYNTHIA Attending Clinician Unavailable Virginie CERVANTES Attending Clinician Unavailable NEGRA Admitting Clinician Unavailable CYNTHIA Admitting Clinician Unavailable Virginie CERVANTES Admitting Clinician Unavailable Allergies, Adverse Reactions, Alerts This patient has no known allergies or adverse reactions. Medications This patient has no known medications. Problems Condition Condition Condition Status Onset Resolution Last Treatin g Comments Name Details Category Date Date Treatment Clinician Date Not on file Not on file [id number] Procedures This patient has no known procedures. Results Test Description Test Time Test Comments Text Results Atomic Results Result Comments THINPREP PAP 2020-01-18 12:38:00 Test Item Value Reference Range Comments CLINICAL INFORMATION: (test code = 34410-8) LMP: (test code = 8665-2) 10/25/19 20 PREV. PAP: (test code = 75068-0) HX HPV PREV. BX: (test code = 78228-0) N/A SOURCE: (test code = 73307-9) Ce rvix, Endocervix STATEMENT OF ADEQUACY: (test code = [place] [address]-0) evaluation.Endoc ervical/transformation zone component a bsent. INTERPRETATION/RESULT: (test code = [place] 17257-1) malignancy. COUNTY MANAGER: (test code = 51927-6) EAW, CT(ASCP)CT screening location: [address] [place] [address] REVIEW COUNTY MANAGER: (test code = JRW, CT(ASCP)CT screening location: [facility] [id number]) [address] [place], [address] [place] [address],[place] [address] HPV mRNA E6/[id number] 12:38:00 Test Item Value Reference Range Comments HPV mRNA E6/E7 (test Not Detected NOT DETECTED This test w as performed using the code = 38552-9) APTIMA HPV Assay ([employer]This assay detects E6/E7 viral messenger RNA (mRNA) from 14high-risk HPV types (16,18,31,33,35, 39,45,51,52,56,58 ,59,66,68).The a nalytical performance liat acteristics ofthis assay hav e been determined by [employer]. The modifications nieto ve not beencleared or a pproved by the FDA. This assay hasbeen validated pursuant to the CLIA regulationsand i s used for clinical purpose s. CULTURE, URINE, [id number] 01:13:00 Test Item Value Reference Range Comments SOURCE: (test code = URINE, CLEAN CATCH 70449-7) STATUS: (test code = FINAL 8251-1) ISOLATE 1: (test Growth of mixed adryan was code = 89700-0) isolated, sugges tingprobable contamination. N o further testing willbe p erformed. If clinically indicated,recoll ection using a method to minimizecontamin ation, with prompt transfer to UrineCulture Transport Tube, is recommended. CBC (INCLUDES DIFF/PLT)2020-01-17 14:00:00 Test Item Value Reference Range Comments WHITE BLOOD CELL COUNT (test code = 6690-2) 16.4 Thousand/uL 3.8 -10.8 RED BLOOD CELL COUNT (test code = 789-8) 4.63 Million/uL 3.80-5. 10 HEMOGLOBIN (test code = 718-7) 14.2 g/dL 11.7-15.5 HEMATOCRIT (test code = 4544-3) 42.3 % 35.0-45.0 MCV (test code = 787-2) 91.4 fL 80.0-100.0 MCH (test code = 785-6) 30.7 pg 27.0-33.0 MCHC (test code = 786-4) 33.6 g/dL 32.0-36.0 RDW (test code = 788-0) 13.1 % 11.0-15.0 PLATELET COUNT (test code = 777-3) 589 Thousand/uL 140-400 MPV (test code = 776-5) 10.3 fL 7.5-12.5 ABSOLUTE NEUTROPHILS (test code = 751-8) 9053 cells/uL 1500-78 00 ABSOLUTE LYMPHOCYTES (test code = 731-0) 5396 cells/uL 850-390 0 ABSOLUTE MONOCYTES (test code = 742-7) 1624 cells/uL 200-950 ABSOLUTE EOSINOPHILS (test code = 711-2) 279 cells/uL 15-500 ABSOLUTE BASOPHILS (test code = 704-7) 49 cells/uL 0-200 NEUTROPHILS (test code = 770-8) 55.2 % LYMPHOCYTES (test code = 736-9) 32.9 % MONOCYTES (test code = 5905-5) 9.9 % EOSINOPHILS (test code = 713-8) 1.7 % BASOPHILS (test code = 706-2) 0.3 % ANTIBODY SCREEN, RBC W/REFL ID, TITER AND [id number] 14:00:00 Test Item Value Reference Range Comments ANTIBODY SCREEN, RBC NO ANTIBODIES Reference r angeNo antibodies W/REFL ID, TITER AND DETECTED detectedThi s assay is a AG (test code = screening test f or the 890-4) detection ofred blood cell antibodies. The test is not to be usedfor pr etransfusion screening or for the medicalmanagemen t of an alloimmunized pr egnancy. ABO GROUP AND RH [id number] 14:00:00 Test Item Value Reference Range Comments ABO GROUP (test code = 883-9) A RH TYPE (test code = 51182-6) RH(D) POSITIVE RPR (DX) W/REFL TITER AND CONFIRMATORY [id number] 14:00:00 Test Item Value Reference Range Comments RPR (DX) W/REFL TITER AND CONFIRMATORY TESTING NON-REACTIVE N ON-REACTIVE (test code = 16277-6) HEPATITIS B SURFACE ANTIGEN W/REFL [id number] 14:00:00 Test Item Value Reference Range Comments HEPATITIS B SURFACE ANTIGEN (test code = NON-REACTIVE NON-ASTON CTIVE 5196-1) RUBELLA IMMUNE [id number] 14:00:00 Test Item Value Reference Range Comments RUBELLA ANTIBODY (IGG) <0.90 index >=1 Index Int erpretation----- (test code = 5334-8) ---<0.90 Not consistent with Immunity0.9 0-0.99 Equivocal> or = 1.00 Consis tent with ImmunityThe pres ence of rubella IgG antibody sug gestsimmunization or past or curre nt infection withrubella viru s. HEPATITIS C AB W/REFL TO HCV RNA, QN, [id number] 14:00:00 Test Item Value Reference Range Comments HEPATITIS C ANTIBODY NON-REACTIVE NON-REACTIVE (test code = 92946-5) SIGNAL TO CUT-OFF (test 0.01 <1.00 HCV anti body was non-reactive. code = 07289-9) There is no labo ratoryevidence of HCV infection .In most cases, no further actio n is required. However,if recen t HCV exposure is suspected, a test for HCV RNA(test code 35 645) is suggested.For ad ditional information plea se refer tohttp://educati on.[facility].[employer] Innovations/faq/FAQ2 2v1(This link is being provided f or informational/ed ucational purposes only.) VARICELLA ZOSTER VIRUS ANTIBODY (IGG)2020-01-17 14:00:00 Test Item Value Reference Range Comments VARICELLA ZOSTER VIRUS 390.60 index >=165 Index Int erpretation--------- ANTIBODY (IGG) (test <135.00 code = 5403-1) Negative - Antib lela not adsyerzg126.00 - 164.99 Equivocal> or = 165.00 Posi tive - Antibody detectedA positi ve result indicates that t he patienthas antibody to VZV but does not differentiatebet ween an active or past infection.T he clinical diagnosis must b e interpreted inconjunction wi th the clinical signs and sympto ms ofthe patient. This assay relia glen measures immunitydue to p revious infection but may not bese nsitive enough to detect antibodie s induced byvaccination. T hus, a negative result in a vacc inatedindividual does not necessa rily indicatesuscepti bility to VZV infection. A mor e sensitivetest for vaccination- induced immunity is VaricellaZost er Virus Antibody Immunity Screen, ACIF. SARS-CoV-2 RNA Resp Ql JACKELYN+[id number] 00:00:00 Test Item Value Reference Range Comments SARS-CoV-2 RNA Resp Ql Not detected ME Covid Public Health Case JACKELYN+probe (test code = ID: 26711 7107 61397-0) Comprehensive metabolic 2000 [id number] 15:37:00 Test Item Value Reference Range Comments Glucose (test code = 2345-7) 95 MG/DL 74-106 Urea nitrogen (test code = 3094-0) 13 MG/DL 7-18 Creatinine (test code = 2160-0) 0.57 MG/DL 0.6-1.3 Glomerular filtration rate/1.73 sq > 60.00 >60 mL/min/1.73 m2 M.predicted (test code = 95526-4) Sodium (test code = 2951-2) 142 MMOL/L 136-145 Potassium (test code = 2823-3) 3.5 MMOL/L 3.5-5.1 Chloride (test code = 2075-0) 107 MMOL/L 98-107 Carbon dioxide (test code = 26.1 MMOL/L 21-32 2026-1) Calcium (test code = 44814-0) 8.9 MG/DL 8.5-10.1 Aspartate aminotransferase (test 15 U/L 15-37 code = 28593-6) Alanine aminotransferase (test 24 U/L 12-78 code = 1743-4) Alkaline phosphatase (test code = 56 U/L 50-136 6768-6) Bilirubin (test code = 86081-5) 0.35 MG/DL 0.2-1.0 HAI0305 (test code = GPZ0737) 7.8 G/DL 6.4-8.2 Albumin (test code = 87696-6) 3.9 G/DL 3.4-5.0 [id number] 15:37:00 Test Item Value Reference Range Comments Creatine kinase (test code = 2157-6) 44 U/L 26-192 Creatine kinase.MB (test code = 88193-7) < 1.0 NG/ML 0.5-3.6 Creatine kinase.MB/Creatine kinase.total (test TNP % 0 -3.0 code = 98411-3) Troponin I.[id number] 15:37:00 Test Item Value Reference Range Comments Troponin I.cardiac (test code = 55768-2) < 0.015 NG/ML 0.00-0. 045 Natriuretic peptide.[id number] 15:37:00 Test Item Value Reference Range Comments Natriuretic peptide.B (test code = 21319-4) 10 PG/ML 5-12 5 PT aPTT [id number] 15:21:00 Test Item Value Reference Range Comments Coagulation tissue factor 15.0 SECONDS 11.7-14.5 induced (test code = 5902-2) Coagulation tissue factor 1.19 0.0-5.50 THERAP EUTIC RANGE: ORAL induced INR (test code = ANTICOA GULANT THERAPY: 6301-6) 2.0-3.0 PREVEN TION OF RECURRENT MYOCAR DIAL INFARCTION: 2.5- 3.5 Coagulation surface induced 27.8 SECONDS 24.9-40.0 (test code = 3173-2) [id number] 15:08:00 Test Item Value Reference Range Comments TVB1896 (test code = OCW4890) 9.8 10 3/uL 4.8-10.8 RBC (test code = RBC) 4.26 10 6/uL 4.2-5.4 TGO63279 (test code = ODX56497) 13.0 G/DL 12.5-16.0 Hematocrit (test code = 70621-2) 39.6 % 37.0-47.0 Erythrocyte mean corpuscular volume (test code 93.0 FL 7 8-100 = 787-2) Erythrocyte mean corpuscular hem (test code = 30.5 PG 27 -31 51223-3) MCHC (test code = MCHC) 32.8 G/DL 32-36 RDW (test code = RDW) 14.3 % 11.5-14.0 Platelets (test code = 777-3) 416 10 3/uL 150-450 MPV (test code = MPV) 10.1 FL 6.0-9.5 Neutrophils/100 leukocytes (test code = 770-8) 58.4 % 4 2.2-75.2 Lymphocytes/100 leukocytes (test code = 27.8 % 20.5-51. 1 54974-5) Monocytes/100 leukocytes (test code = 5905-5) 12.8 % 1. 9-9.3 Eosinophils/100 leukocytes (test code = 713-8) 0.4 % 0 -10 Basophils/100 leukocytes (test code = 706-2) 0.4 % 0-0 .8 IMMATURE GRANULOCYTE % (test code = IG%) 0.2 % NUCLEATED RED BLOOD CELL % (test code = NRBC%) 0 Neutrophils (test code = 751-8) 5.73 10 3/uL 1.4-6.5 Lymphocytes (test code = 08527-8) 2.7 K/UL 1.2-3.4 Monocytes (test code = 742-7) 1.25 10 3/uL 0.11-0.59 Eosinophils (test code = 711-2) 0.04 10 3/uL 0.0-0.7 Basophils (test code = 704-7) 0.04 10 3/uL 0.0-0.2 IMMATURE GRANULOCYTES # (test code = IG#) 0.02 10 3/uL NUCLEATED RED BLOOD CELL # (test code = NRBC#) 0 10 3/uL Streptococcus pyogenes [id number] 20:21:00 Test Item Value Reference Range Comments Streptococcus pyogenes Ag (test code = 6556-5) POSITIVE N EG Is specimen to be collected by floor? YHas specimen been collected by floor yet? Y Assessments Condition Name Status Diagnosis Date Treating Clinici an Calculus of kidney Active 0 Calculus of ureter Active 0 Encounters Start End Encounter Admission Attending Care Care Encounter ID Date/Time Date/Time Type Type Clinicians Facility Department 2011-02-16 Inpatient [facility] [id number] 18:30:00 2020-03-03 2020-03-03 Outpatient [facility] [id number] 00:00:00 00:00:00 [id number] 2019-06-26 2019-06-26 [facility] [id number] 15:29:00 15:29:00 2019-06-14 2019-06-14 [facility] [id number] 00:00:00 00:00:00 2019-06-14 2019-06-14 [facility] [id number] 00:00:00 00:00:00 2016-06-04 2016-06-04 Outpatient [facility] [id number] 15:16:45 23:59:00 [id number] 2015-12-06 2015-12-06 Emergency ER WINTER, [facility] [id number] 14:13:00 18:31:00 MARIA E 2015-12-05 2015-12-06 Emergency ER AMANDA, [facility] [id number] 22:07:00 00:14:00 YAZAN 2015-09-15 2015-09-15 Emergency ER CRIS, [facility] [id number] 19:16:00 21:27:00 MARIA LUISA 2015-04-18 2015-04-18 Emergency ER HUSSEIN, [facility] [id number] 15:56:00 18:41:00 JING 2015-03-27 2015-03-27 Emergency ER VIRGINIEAT, [facility] [id number] 15:15:00 19:58:00 RYAN 2011-02-08 2011-02-09 Inpatient [facility] [id number] 15:56:00 17:59:00 KISHOR 2011-01-27 2011-01-27 Inpatient JOVITA OMER [facility] [id number] 15:46:00 17:40:00 KISHOR 2010-12-26 2010-12-26 Inpatient UR CYNTHIA, [facility] [id number] 16:54:00 17:50:00 FABIO 2007-07-02 2007-07-02 Inpatient UR , [facility] [id number] 12:28:00 17:27:00 ELVIA 2007-05-11 2007-05-11 [facility]patient [facility] [id number] 18:01:00 20:15:00 KISHOR Payers Payer Name Policy Type Policy Number Effective Date Expiration D [facility] A [id number] 2011 00:00:00 00:00:00 [place] [id number] 2020 00:00:00 [facility] [id number] [employer] [id number] 2014 00:00:00 [employer] [id number] 2014 00:00:00 [facility] [id number] Plan of Treatment Planned Activity Planned Date Details Comments Future Scheduled Test [code = ] Future Scheduled Test [code = ] Social History This patient has no known social history. Vital Signs Vital Name Observation Time Observation Value Comments WEIGHT 2015-12-06 14:13:00 78.018 kg WEIGHT 2015-12-05 22:07:00 79.832 kg HEIGHT 2015-12-05 22:07:00 167.6 cm WEIGHT 2015-09-15 19:16:00 81.647 kg HEIGHT 2015-09-15 19:16:00 167.6 cm WEIGHT 2015-04-18 15:56:00 85.684 kg HEIGHT 2015-04-18 15:56:00 167.6 cm WEIGHT 2015-03-27 15:15:00 83.007 kg HEIGHT 2015-03-27 15:15:00 167.6 cm WEIGHT 2011-02-08 15:56:00 80.419199 kg HEIGHT 2011-02-08 15:56:00 167.627912 cm WEIGHT 2011-01-27 15:46:00 79.697896 kg HEIGHT 2011-01-27 15:46:00 167.071741 cm
[2020-04-09 18:49] LABS: ABSOLUTE LYMPHOCYTES (AUTO) 2.2 10^3/uL (0.5-4.7); BASOPHILS % (AUTO) 0.3 % (0-2); HEMATOCRIT 39.1 % (36.0-47.0); HEMOGLOBIN 13.3 g/dL (12.0-15.5); LYMPHOCYTES % (AUTO) 13.8 % (13-45); MEAN CORPUSCULAR HEMOGLOBIN 29.2 pg (27.0-33.4); MEAN CORPUSCULAR VOLUME 86 fl (80-97); PLATELET COUNT 433 10^3/uL (150-450); RED BLOOD COUNT 4.57 10^6/uL (3.72-5.28); RED CELL DISTRIBUTION WIDTH 14.1 % (11.5-14.0); SEGMENTED NEUTROPHILS % (AUTO) 79.9 % (42-78); TOTAL CELLS COUNTED % (AUTO) 100 %; WHITE BLOOD COUNT 16.2 10^3/uL (4.0-10.5)
[2020-04-09 18:54] LABS: APPEARANCE,URINE CLOUDY; BILIRUBIN,URINE NEGATIVE (NEGATIVE); COLOR,URINE AMBER; GLUCOSE, URINE NEGATIVE (NEGATIVE); KETONES,URINE 80 mg/dL (NEGATIVE); LEUKOCYTE ESTERASE,URINE NEGATIVE (NEGATIVE); NITRITE,URINE NEGATIVE (NEGATIVE); PROTEIN,URINE 100 mg/dL (NEGATIVE); URINE SPECIFIC GRAVITY 1.028
[2020-04-09 19:07] LABS: ALBUMIN 3.6 g/dL (3.5-5.0); ALKALINE PHOSPHATASE 122 U/L (38-126); ANION GAP 10 (5-19); ASPARTATE AMINO TRANSFERASE 100 U/L (14-36); BILIRUBIN,DIRECT 0.4 mg/dL (0.0-0.4); BILIRUBIN,TOTAL 0.5 mg/dL (0.2-1.3); BLOOD UREA NITROGEN 9 mg/dL (7-20); CALCIUM 9.1 mg/dL (8.4-10.2); CARBON DIOXIDE 22 mmol/L (22-30); CHLORIDE 102 mmol/L (98-107); GLUCOSE 110 mg/dL (75-110); POTASSIUM 3.9 mmol/L (3.6-5.0); TOTAL PROTEIN 6.6 g/dL (6.3-8.2)
--- NOTE | 2020-04-09 19:17 | EKG REPORT ---
SEVERITY:- ABNORMAL ECG - SINUS TACHYCARDIA NONSPECIFIC ST-T CHANGES, DIFFUSE : Confirmed by: Dennis Delgado MD 09-Apr-2020 19:16:52
[2020-04-09 19:18] LABS: NT PRO BNP 18 pg/mL (<125)
[2020-04-09 19:19] LABS: TROPONIN I < 0.012 ng/mL
[2020-04-09] MEDS ORDERED: LIDOCAINE 2% VISCOUS SOLN 15 ML UDCUP PO ONE (20:52)
[2020-04-09] MEDS ORDERED: DIPHENHYDRAMINE HCL 50 MG/ML VIAL IV ONE (20:52)
[2020-04-09] MEDS ORDERED: MAG HYDROX/AL HYDROX/SIMETH SUSP 30 ML UDCUP PO ONE (20:52)
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
[2020-04-09] MEDS: RINGERS SOLUTION,LACTATED 1,000 ML IV PRN ×2 (21:16→23:30)
[2020-04-09 23:28] VITALS: BP 103/58
[2020-04-09] MEDS ORDERED: ONDANSETRON ODT 4 MG TAB (6 TAB/ER DISP) PO PRN (23:29)
== END 2020-04-09 23:51 | disposition home or self-care (01) ==
LOC: ER 15:47
DX: O98.512 Other viral diseases complicating pregnancy, second trimester (principal); U07.1 COVID-19; E86.0 Dehydration; R09.81 Nasal congestion; R11.2 Nausea with vomiting, unspecified; R07.9 Chest pain, unspecified; M54.9 Dorsalgia, unspecified; R51.9 Headache, unspecified; Z3A.24 24 weeks gestation of pregnancy
CPT/HCPCS: 93005; 99284; 96361; 96374; 96375; 36415; 83690; 85025; 80053; 81001; 84484; 83880; 93010; J1200; S0119; J3490 ×2; J2765; J7030; J7120; 87086

== ENCOUNTER 2020-04-16 06:37 | Emergency (ER) | payer MEDICAID ==
[2020-04-16] MEDS ORDERED: ONDANSETRON HCL INJ/PF 4 MG/2 ML SDV IV ONE (07:38)
[2020-04-16] MEDS ORDERED: NORMAL SALINE 1000 ML 1,000 ML IV ONE ×2 (07:38→10:18)
[2020-04-16] MEDS ORDERED: METOCLOPRAMIDE HCL INJ/PF 10 MG/2 ML SDV ONE (07:46)
[2020-04-16] MEDS ORDERED: METOCLOPRAMIDE HCL INJ/PF 10 MG/2 ML SDV IV ONE ×2 (07:55→10:19)
[2020-04-16 08:09] LABS: ABSOLUTE BASOPHILS # (AUTO) 0.1 10^3/uL (0.0-0.2); ABSOLUTE EOSINOPHILS # (AUTO) 0.1 10^3/uL (0.0-0.6); ABSOLUTE LYMPHOCYTES (AUTO) 4.3 10^3/uL (0.5-4.7); ABSOLUTE MONOCYTES (AUTO) 1.4 10^3/uL (0.1-1.4); ABSOLUTE NEUT (AUTO) 7.4 10^3/uL (1.7-8.2); BASOPHILS % (AUTO) 0.5 % (0-2); EOSINOPHILS % (AUTO) 0.8 % (0-6); HEMOGLOBIN 12.5 g/dL (12.0-15.5); LYMPHOCYTES % (AUTO) 32.5 % (13-45); MEAN CORPUSCULAR HGB CONC 33.9 g/dL (32.0-36.0); MEAN CORPUSCULAR VOLUME 86 fl (80-97); MONOCYTES % (AUTO) 10.6 % (3-13); PLATELET COUNT 869 10^3/uL (150-450); RED BLOOD COUNT 4.32 10^6/uL (3.72-5.28); RED CELL DISTRIBUTION WIDTH 13.9 % (11.5-14.0); SEGMENTED NEUTROPHILS % (AUTO) 55.6 % (42-78); TOTAL CELLS COUNTED % (AUTO) 100 %; WHITE BLOOD COUNT 13.4 10^3/uL (4.0-10.5)
[2020-04-16 08:31] LABS: ALBUMIN 3.6 g/dL (3.5-5.0); ALKALINE PHOSPHATASE 130 U/L (38-126); ANION GAP 11 (5-19); ASPARTATE AMINO TRANSFERASE 69 U/L (14-36); BILIRUBIN,DIRECT 0.3 mg/dL (0.0-0.4); BILIRUBIN,TOTAL 0.8 mg/dL (0.2-1.3); BLOOD UREA NITROGEN 12 mg/dL (7-20); CALCIUM 8.9 mg/dL (8.4-10.2); CARBON DIOXIDE 23 mmol/L (22-30); CHLORIDE 105 mmol/L (98-107); GLUCOSE 132 mg/dL (75-110); POTASSIUM 4.2 mmol/L (3.6-5.0); TOTAL PROTEIN 6.8 g/dL (6.3-8.2)
[2020-04-16 10:26] LABS: APPEARANCE,URINE SLIGHTLY-CLOUDY; BILIRUBIN,URINE NEGATIVE (NEGATIVE); COLOR,URINE AMBER; GLUCOSE, URINE NEGATIVE (NEGATIVE); KETONES,URINE 80 mg/dL (NEGATIVE); LEUKOCYTE ESTERASE,URINE NEGATIVE (NEGATIVE); NITRITE,URINE NEGATIVE (NEGATIVE); PROTEIN,URINE 100 mg/dL (NEGATIVE); URINE SPECIFIC GRAVITY 1.026
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
[2020-04-16 12:35] VITALS: BP 118/83
== END 2020-04-16 12:34 | disposition home or self-care (01) ==
LOC: ER 06:37
DX: O98.512 Other viral diseases complicating pregnancy, second trimester (principal); O99.512 Diseases of the respiratory system complicating pregnancy, second trimester; U07.1 COVID-19; J98.8 Other specified respiratory disorders; E86.0 Dehydration; R51.9 Headache, unspecified; O21.2 Late vomiting of pregnancy; Z3A.25 25 weeks gestation of pregnancy
CPT/HCPCS: 96376; 99284; 96361; 96374; 36415; 85025; 80053; 81001; J2765; J7030